=== PATIENT | male | born 1975 | race Two or more races ===

== ENCOUNTER 2018-08-02 06:47 | Inpatient (IN) | payer OTHER ==
[~2018-08-02] VITALS: Ht 167.6 cm; Wt 76.2 kg
[2018-08-02] VITALS (16 sets, daily range): BP systolic 91–149; BP diastolic 50–84
[~2018-08-02 06:47] MED LIST: COUMADIN7.5 MG ORAL; ceFAZolin 1gm IVPB IVPB ONE; celeBREX 200mg Cap **SURGERY PATIENTS ONLY ORAL ONE; oxyCONTIN 20mg tab ORAL ONE
[2018-08-02] MEDS ORDERED: DICLOFENAC SODI75 MG ORAL (07:25)
--- NOTE | 2018-08-02 07:35 | NUR ---
iv was started by jomar tovar r.n. at 0730 am
--- NOTE | 2018-08-02 07:46 | Pre-Procedure Note/Attestation ---
Pre-Procedure Note/Attestation Complete Prior to Procedure Planned Procedure: left Procedure Narrative: CA ligament reconsturction Indications for Procedure Pre-Operative Diagnosis: left AC joint seperation Attestation I attest that I discussed the nature of the procedure; its benefits; risks and complications; and alternatives (and the risks and benefits of such alternatives ), prior to the procedure, with the patient (or the patient's legal freight representative). I attest that, if there was a reasonable possibility of needing a blood transfusion, the patient (or the patient's legal freight representative) was given the [facility] standardized written summary, pursuant to the Perez Deshawn Blood Safety Act ([place] Health and Safety Code # 1645, as amended). I attest that I re-evaluated the patient just prior to the surgery and that there has been no change in the patient's H&P, except as documented below: Keanu Doll MD Aug 02, 2018 07:46
--- NOTE | 2018-08-02 07:46 | Operative Note - PDOC ---
Operative Note Operative Note Pre-op Diagnosis: left AC joint seperation Procedure: seee op report Post-op Diagnosis: same as pre-op plus Operative Findings: consistent w/pre-op dx studies Anesthesia: MAC Specimen: none Complications: none Condition: stable Estimated Blood Loss: none Implant(s) used?: Yes Keanu Doll MD Aug 02, 2018 07:46
--- NOTE | 2018-08-02 08:59 | Anethesia Preoperative Eval ---
Anesthesia Pre-op PMH/ROS General Date of Evaluation: Aug 02, 2018 Anesthesiologist: Jose Miguel ASA Score: ASA 2 Mallampati Score Class I : Soft palate, uvula, fauces, pillars visible Class II: Soft palate, uvula, fauces visible Class III: Soft palate, base of uvula visible Class IV: Only hard plate visible Mallampati Classification: Class II Surgeon: Lavon Diagnosis: Right shoulder pain Surgical Procedure: Right shoulder arthroscopy, AC reconstruction Anesthesia History: none Family History: no anesthesia problems Allergies: Coded Allergies: No Known Allergies (Unverified , 08/01/18) Medications: see eMAR Patient NPO?: Yes NPO Date: Aug 01, 2018 NPO Time: 22:00 Past Medical History Cardiovascular: Reports: HTN, valve dz - s/p aortic valve repair; Denies: CAD, ND, arrhythmia, other Pulmonary: Denies: asthma, COPD, GALEN, other Gastrointestinal/Genitourinary: Denies: GERD, CRI, ESRD, other Neurologic/Psychiatric: Denies: dementia, CVA, depression/anxiety, TIA, other Endocrine: Denies: DM, hypothyroidism, steroids, other HEENT: Denies: cataract (L), cataract (R), glaucoma, SA[place] (L), [place] (R), other Hematology/Immune: Denies: anemia, DVT, bleeding disorder, other Musculoskeletal/Integumentary: Denies: OA, RA, DJD, DDD, edema, other PSxH Narrative: AVR Anesthesia Pre-op Phys. Exam Physician Exam Last Vital Signs Date Time Temp Pulse Resp B/P (MAP) Pulse Ox O2 Delivery O2 Flow Rate FiO2 08/02/18 07:26 Room Air 08/02/18 07:17 96.7 48 18 149/76 99 Constitutional: NAD Cardiovascular: RRR Respiratory: CTA Airway Exam Mallampati Score: Class II MO: full ROM: full Teeth: intact Anesthesia Pre-op A/P Labs see chart Studies Pre-op Studies: EKG - sr Risk Assessment & Plan Assessment: ASA II Plan: GA with interscalene nerve block Status Change Before Surgery: No Pre-Antibiotics Drug: TBD Given Within 1 Hr of Incision: Yes Tona Dye MD Aug 02, 2018 08:59
[2018-08-02] MEDS: Docusate 100mg cap ORAL SCH ×5 (09:00→17:55)
[2018-08-02] MEDS: oxyCONTIN 20mg tab ORAL SCH ×3 (09:00→20:50)
[2018-08-02] MEDS ORDERED: EPINEPHrine 1mg/1ml Amp ONE (09:31)
[2018-08-02] MEDS ORDERED: Bupivacaine 0.25% Inj 30ml INJ ONE (09:31)
[2018-08-02] MEDS ORDERED: Propofol 200mg/20ml IV ONE (09:34)
[2018-08-02] MEDS ORDERED: Lidocaine 1% MPF 10mg/ml 5ml ONE (09:34)
[2018-08-02] MEDS ORDERED: Midazolam 2mg/2ml Inj ONE (09:35)
[2018-08-02] MEDS ORDERED: fentaNYL 100 mcg/2 mL IV ONE (09:35)
[2018-08-02] MEDS ORDERED: Ketorolac 30mg Inj ONE (09:36)
[2018-08-02] MEDS ORDERED: Ropivacaine 5mg/ml Vial 30ml INJ ONE ×2 (09:36→09:38)
[2018-08-02] MEDS ORDERED: Metoclopramide 10mg/2ml Inj ONE (09:36)
[2018-08-02] MEDS ORDERED: LR 1000ml 1,000 ML IVLG SCH (09:50)
[2018-08-02] MEDS ORDERED: Bacitracin 50000 Units Vial IRRIG ONE (09:50)
[2018-08-02] MEDS ORDERED: NS Irrig 2000ml IRRIG ONE (09:50)
[2018-08-02] MEDS ORDERED: Hydromorphone 0.5mg/0.5ml inj IVP PRN (10:00)
[2018-08-02] MEDS ORDERED: Ketorolac 30mg Inj IV PRN (10:00)
[2018-08-02] MEDS ORDERED: fentaNYL 100 mcg/2 mL IV PRN (10:00)
[2018-08-02] MEDS ORDERED: Metoclopramide 10mg/2ml Inj IVP PRN (10:00)
[2018-08-02] MEDS ORDERED: LORazepam Inj 2mg/ml 1ml IV PRN (10:00)
[2018-08-02] MEDS ORDERED: Sterile Water Irrig 1000ml IRRIG ONE (10:00)
[2018-08-02] MEDS ORDERED: NS Irrig 1000ml ONE (10:00)
[2018-08-02] MEDS ORDERED: Midazolam 2mg/2ml Inj IVP PRN (10:00)
[2018-08-02] MEDS ORDERED: DiphenhydrAMINE 50mg/ml Inj IVP PRN (10:00)
[2018-08-02] MEDS ORDERED: LR 1000ml ONE (10:00)
[2018-08-02] MEDS ORDERED: Bacitracin 50000 Units Vial ONE (10:08)
[2018-08-02] MEDS ORDERED: NeoSporin Gu Irrig 1ml Amp IRRIG ONE (10:08)
[2018-08-02] MEDS ORDERED: Dexamethasone 4mg/ml vial ONE (10:37)
--- NOTE | 2018-08-02 12:34 | Immediate Post-Op Evaluation ---
Immediate Post-Op Evalulation Immediate Post-Op Evalulation Procedure: Right AC joint reconstruction Date of Evaluation: Aug 02, 2018 Time of Evaluation: 12:34 IV Fluids: 1.2L Blood Products: 0 Estimated Blood Loss: 20 Urinary Output: 0 Blood Pressure Systolic: 92 Blood Pressure Diastolic: 58 Pulse Rate: 76 Respiratory Rate: 16 O2 Sat by Pulse Oximetry: 95 Temperature (Fahrenheit): 97 Pain Score (1-10): 0 Nausea: No Vomiting: No Complications 0 Patient Status: awake, reacts, patent, none Hydration Status: adequate Drug: Ancef 1g Given Within 1 Hr of Incision: Yes Tona Dye MD Aug 02, 2018 12:33
[2018-08-02] MEDS ORDERED: ceFAZolin sod 1 GM in D5W 55 ML IV SCH (14:00)
--- NOTE | 2018-08-02 14:10 | NUR ---
NURSE NOTES: Received report from JOSEPHINE Paz, PRODUCE LABORER. Patient a/o x4 lying on the bed. Denies any pain at this time. Right shoulder reconstruction surgical site is dry and intact. Left IV site is patent with LR fluid. is at bedside. Bed in lowest position, call light within reach. Will continue to monitor.
[2018-08-02] MEDS: ceFAZolin sod 1 GM in D5W 55 ML IV SCH (17:27)
--- NOTE | 2018-08-02 17:34 | 48 Hour Post Anesthesia Eval ---
Post Anesthesia Evaluation Procedure: Right AC joint reconstruction Date of Evaluation: Aug 02, 2018 Time of Evaluation: 14:03 Blood Pressure Systolic: 117 0: 73 Pulse Rate: 83 Respiratory Rate: 18 Temperature (Fahrenheit): 97.9 O2 Sat by Pulse Oximetry: 95 Airway: patent Nausea: No Vomiting: No Pain Intensity: 1 Hydration Status: adequate Cardiopulmonary Status: Stable Mental Status/LOC: patient returned to baseline Follow-up Care/Observations: 0 Post-Anesthesia Complications: 0 Follow-up care needed: N/A Lane Patten MD Aug 02, 2018 17:34
--- NOTE | 2018-08-02 19:25 | NUR ---
NURSE NOTES: Dr. Khan called and ordered 1. Heparin drip 1,000 units per hour 2. PT/PTT STAT 3. PT/PTT after 6 hours of initiating for heparin drip 4. call Dr. Khan regarding results 5. Coumadin 7.5 mg po one time 6. INR tomorrow morning Noted and carried out.
[2018-08-02] MEDS ORDERED: Heparin 1000 units/ml 1ml Vial INJ ONE (19:30)
[2018-08-02] MEDS ORDERED: Heparin 25,000u/D5W 500ml 500 ML IV SCH (20:15)
--- NOTE | 2018-08-02 20:20 | NUR ---
HAND-OFF: Report given to JONATHAN Tariq.
[2018-08-02 20:37] LABS: HEMATOCRIT 42.8 % (42.0-52.0); HEMOGLOBIN 14.4 G/DL (14.2-18.0); MEAN CORPUSCULAR VOLUME 89 FL (80-99); PLATELET COUNT 194 K/UL (150-450); RED BLOOD COUNT 4.79 M/UL (4.70-6.10); RED CELL DISTRIBUTION WIDTH 11.5 % (11.6-14.8); WHITE BLOOD COUNT 8.3 K/UL (4.8-10.8)
[2018-08-02] MEDS ORDERED: Warfarin Sodium 7.5mg ORAL SCH (21:00)
--- NOTE | 2018-08-02 21:00 | NUR ---
NURSE NOTES: Pt is in bed, awake and alert6. No acute distress noted. Right shoulder dressing is dry and intact; ice pack applied. Heparin drip started per Dr. Khan's order. 13unit/kg/hr ( 19.8ml/hr). A timed PTT is ordered for 0300am. No bleeding noted. Pt's by bedside. Pt will be monitored. Bed low in position,side rails up and call light within reach.
--- NOTE | 2018-08-02 23:00 | NUR ---
NURSE NOTES: Dr. Khan by bedside to see patient. No new orders received.
--- NOTE | 2018-08-02 23:06 | Consultation ---
History of Present Illness General Date patient seen: Aug 02, 2018 Time patient seen: 23:03 Present Illness Allergies: Coded Allergies: No Known Allergies (Unverified , 08/01/18) Medication History Scheduled Diclofenac Sod* (Voltaren*), 75 MG ORAL PRN, (Reported) Warfarin Sod (Coumadin*), 7.5 MG ORAL DAILY, (Reported) Patient History Healthcare decision maker Resuscitation status Advanced Directive on File Review of Systems Constitutional: Reports: no symptoms Eye: Reports: no symptoms ENT: Reports: no symptoms Respiratory: Reports: no symptoms Cardiovascular: Reports: no symptoms Physical Exam General Appearance: WD/WN HEENT: normocephalic, atraumatic Respiratory/Chest: lungs clear Cardiovascular/Chest: normal rate, regular rhythm, other - s1,s 2, Abdomen: non tender, soft Genitourinary/Rectal: other - no edema Last 24 Hour Vital Signs Date Time Temp Pulse Resp B/P (MAP) Pulse Ox O2 Delivery O2 Flow Rate FiO2 08/02/18 21:00 Nasal Cannula 3.0 08/02/18 20:00 98.1 63 16 105/61 (76) 99 08/02/18 17:36 83 18 95 08/02/18 16:10 97.9 83 18 117/73 (88) 95 08/02/18 15:10 97.6 82 16 123/78 (93) 94 08/02/18 14:40 98.4 81 16 129/82 (98) 96 08/02/18 14:10 Nasal Cannula 3.0 08/02/18 14:10 98.1 80 16 133/84 (100) 96 08/02/18 14:00 97.3 76 17 128/81 98 Nasal Cannula 3.0 08/02/18 13:45 97.3 77 16 128/80 97 Nasal Cannula 3.0 08/02/18 13:30 78 15 142/82 98 Nasal Cannula 3 08/02/18 13:20 80 15 126/72 98 Nasal Cannula 3 08/02/18 13:10 81 14 129/82 100 Nasal Cannula 3 08/02/18 13:00 79 16 123/80 100 Simple Mask 6.0 08/02/18 12:49 67 19 125/75 100 Simple Mask 6.0 08/02/18 12:39 71 18 91/57 99 Simple Mask 6.0 08/02/18 12:34 70 17 105/50 99 Simple Mask 6.0 08/02/18 12:33 76 16 95 08/02/18 12:29 97.0 76 16 92/58 95 Simple Mask 6.0 08/02/18 07:26 Room Air 08/02/18 07:17 96.7 48 18 149/76 99 Room Air Laboratory Tests Test 08/02/18 20:15 08/02/18 20:30 Prothrombin Time 10.7 SEC (9.30-11.50) Prothromb Time International Ratio 1.0 (0.9-1.1) Activated Partial Thromboplast Time 23 SEC (23-33) White Blood Count 8.3 K/UL (4.8-10.8) Red Blood Count 4.79 M/UL (4.70-6.10) Hemoglobin 14.4 G/DL (14.2-18.0) Hematocrit 42.8 % (42.0-52.0) Mean Corpuscular Volume 89 FL (80-99) Mean Corpuscular Hemoglobin 30.0 PG (27.0-31.0) Mean Corpuscular Hemoglobin Concent 33.6 G/DL (32.0-36.0) Red Cell Distribution Width 11.5 % (11.6-14.8) L Platelet Count 194 K/UL (150-450) Mean Platelet Volume 6.8 FL (6.5-10.1) Neutrophils (%) (Auto) % (45.0-75.0) Lymphocytes (%) (Auto) % (20.0-45.0) Monocytes (%) (Auto) % (1.0-10.0) Eosinophils (%) (Auto) % (0.0-3.0) Basophils (%) (Auto) % (0.0-2.0) Differential Total Cells Counted 100 Neutrophils % (Manual) 87 % (45-75) H Lymphocytes % (Manual) 8 % (20-45) L Monocytes % (Manual) 3 % (1-10) Eosinophils % (Manual) 0 % (0-3) Basophils % (Manual) 0 % (0-2) Band Neutrophils 2 % (0-8) Platelet Estimate Adequate Platelet Morphology Normal Red Blood Cell Morphology Normal Height (Feet): 5 Height (Inches): 6.00 Weight (Pounds): 168 Medications Current Medications Medications (Trade) Dose Ordered Sig/Kelli Route PRN Reason Start Time Stop Time Status Last Admin Dose Admin Acetaminophen/ Hydrocodone Bitart ([place] 5/325) 1 tab Q4H PRN ORAL For Pain 08/02/18 07:45 08/09/18 07:44 Cefazolin Sodium 1 gm/Dextrose 55 ml @ 110 mls/hr Q8H IV 08/02/18 18:00 08/03/18 10:29 08/02/18 17:27 Docusate Sodium (Colace) 100 mg THREE TIMES A DAY ORAL 08/02/18 09:00 09/01/18 08:59 Heparin Sodium/ Dextrose 500 ml @ 19.813 mls/ hr ADJUST PER PROTOCOL IV 08/02/18 20:15 09/01/18 20:14 08/02/18 20:53 Ondansetron HCl (Zofran) 4 mg Q6H PRN IVP Nausea & Vomiting 08/02/18 07:45 09/01/18 07:44 08/02/18 17:40 Oxycodone HCl (OxyCONTIN) 20 mg EVERY 12 HOURS ORAL 08/02/18 09:00 08/09/18 08:59 08/02/18 20:50 Temazepam (Restoril) 7.5 mg HSPRN PRN ORAL Insomnia 08/02/18 07:45 08/09/18 07:44 Assessment/Plan Status Narrative s/p shoulder surgery history of mechanical aortic valve replacement Assessment/Plan perioperative antibiotic prophyalxis checked pt , ptt, start on coumadin 7.5 mg today check inr in am to get him on heparin dripo and will follow. Miguel Khan MD Aug 02, 2018 23:06
[2018-08-03] VITALS: BP 105/57
[2018-08-03] MEDS: ceFAZolin sod 1 GM in D5W 55 ML IV SCH ×2 (02:37→10:02)
[2018-08-03] MEDS ORDERED: Heparin 5000 units/ml inj IV SCH (03:45)
[2018-08-03] MEDS ORDERED: Heparin 25,000u/D5W 500ml 500 ML IV SCH (03:45)
--- NOTE | 2018-08-03 03:46 | NUR ---
NURSE NOTES: aPTT is 37; [facility] adjusted the heparin drip rate.Orders acknowledged and carried out. Pt is awake and alert. No acute distress noted. No bleeding noted. Pt will be monitored. aPTT ordered for 0645am Addendum: 08/03/18 at 0626 by TADEO BRANHAM RN RN aPTT ordered for 0945am
[2018-08-03 04:00] VITALS: BP 112/55
--- NOTE | 2018-08-03 05:59 | NUR ---
NURSE NOTES: No distress noted overnight. Pt is calm in bed.
--- NOTE | 2018-08-03 07:15 | NUR ---
HAND-OFF: Report given to Shalonda Guzman RN. PT is on heparin drip. Informed to monitor closely.
--- NOTE | 2018-08-03 07:26 | NUR ---
NURSE NOTES: Received report from JONATHAN Tariq. Rounding done with outgoing nurse. Patient a/o x 4 lying on the bed. Surgical site is dry and intact. Patient on heparin drip at this time. No active bleeding noted. IV patent. at bed side. Bed in lowest position, call light within reach. Will continue to monitor.
[2018-08-03] MEDS: Docusate 100mg cap ORAL SCH ×3 (08:33→17:53)
[2018-08-03] MEDS: oxyCONTIN 20mg tab ORAL SCH ×2 (08:34→21:18)
[2018-08-03] MEDS: HYDROcodone/Acetamin 5/325 tab ORAL PRN ×2 (10:04→14:21)
[2018-08-03] MEDS: Heparin 25,000u/D5W 500ml 500 ML IV SCH ×2 (11:16→21:18)
[2018-08-03 12:00] VITALS: BP 126/69
[2018-08-03 16:00] VITALS: BP 126/72
--- NOTE | 2018-08-03 16:15 | NUR ---
NURSE NOTES: Patient still c/o pain after [place] was given. Apical pulse rate [address] Khan and said will come soon.
--- NOTE | 2018-08-03 17:11 | NUR ---
NURSE NOTES: Dr. Khan came to see the patient. Notified to Dr. Khan regarding HR was 50. MD aware and no new order.
--- NOTE | 2018-08-03 17:38 | Consultation ---
History of Present Illness General Date patient seen: Aug 03, 2018 Time patient seen: 17:37 Present Illness Allergies: Coded Allergies: No Known Allergies (Unverified , 08/01/18) Medication History Scheduled Diclofenac Sod* (Voltaren*), 75 MG ORAL PRN, (Reported) Warfarin Sod (Coumadin*), 7.5 MG ORAL DAILY, (Reported) Patient History Healthcare decision maker Resuscitation status Advanced Directive on File Review of Systems Constitutional: Reports: no symptoms Eye: Reports: no symptoms ROS Narrative has a lot of pain norc o is not working Physical Exam General Appearance: WD/WN HEENT: normocephalic Respiratory/Chest: lungs clear Cardiovascular/Chest: other - s1,mechanical s2, rrr Abdomen: non tender, soft Last 24 Hour Vital Signs Date Time Temp Pulse Resp B/P (MAP) Pulse Ox O2 Delivery O2 Flow Rate FiO2 08/03/18 16:00 98.1 50 18 126/72 (90) 92 08/03/18 12:00 97.5 51 19 126/69 (88) 96 08/03/18 09:00 Room Air 08/03/18 04:00 97.5 60 16 112/55 (74) 100 08/03/18 00:00 98.6 59 18 105/57 (73) 98 08/02/18 21:00 Nasal Cannula 3.0 08/02/18 20:00 98.1 63 16 105/61 (76) 99 Intake and Output 08/02/18 08/03/18 19:00 07:00 Intake Total 1405 ml 432.166 ml Balance 1405 ml 432.166 ml Intake Oral 150 ml 240 ml IV Total 1255 ml 192.166 ml # Voids 2 1 Laboratory Tests Test 08/02/18 20:15 08/02/18 20:30 08/03/18 03:01 08/03/18 09:42 Prothrombin Time 10.7 SEC (9.30-11.50) 10.9 SEC (9.30-11.50) Prothromb Time International Ratio 1.0 (0.9-1.1) 1.0 (0.9-1.1) Activated Partial Thromboplast Time 23 SEC (23-33) 37 SEC (23-33) H 106 SEC (23-33) H White Blood Count 8.3 K/UL (4.8-10.8) Red Blood Count 4.79 M/UL (4.70-6.10) Hemoglobin 14.4 G/DL (14.2-18.0) Hematocrit 42.8 % (42.0-52.0) Mean Corpuscular Volume 89 FL (80-99) Mean Corpuscular Hemoglobin 30.0 PG (27.0-31.0) Mean Corpuscular Hemoglobin Concent 33.6 G/DL (32.0-36.0) Red Cell Distribution Width 11.5 % (11.6-14.8) L Platelet Count 194 K/UL (150-450) Mean Platelet Volume 6.8 FL (6.5-10.1) Neutrophils (%) (Auto) % (45.0-75.0) Lymphocytes (%) (Auto) % (20.0-45.0) Monocytes (%) (Auto) % (1.0-10.0) Eosinophils (%) (Auto) % (0.0-3.0) Basophils (%) (Auto) % (0.0-2.0) Differential Total Cells Counted 100 Neutrophils % (Manual) 87 % (45-75) H Lymphocytes % (Manual) 8 % (20-45) L Monocytes % (Manual) 3 % (1-10) Eosinophils % (Manual) 0 % (0-3) Basophils % (Manual) 0 % (0-2) Band Neutrophils 2 % (0-8) Platelet Estimate Adequate Platelet Morphology Normal Red Blood Cell Morphology Normal Test 08/03/18 17:15 Activated Partial Thromboplast Time Pending Height (Feet): 5 Height (Inches): 6.00 Weight (Pounds): 168 Medications Current Medications Medications (Trade) Dose Ordered Sig/Kelli Route PRN Reason Start Time Stop Time Status Last Admin Dose Admin Acetaminophen/ Hydrocodone Bitart ([place] 5/325) 1 tab Q4H PRN ORAL For Pain 08/02/18 07:45 08/09/18 07:44 08/03/18 14:21 Docusate Sodium (Colace) 100 mg THREE TIMES A DAY ORAL 08/02/18 09:00 09/01/18 08:59 08/03/18 12:10 Heparin Sodium/ Dextrose 500 ml @ 21.337 mls/ hr ADJUST PER PROTOCOL IV 08/03/18 11:00 09/02/18 10:59 08/03/18 11:16 Ondansetron HCl (Zofran) 4 mg Q6H PRN IVP Nausea & Vomiting 08/02/18 07:45 09/01/18 07:44 08/02/18 17:40 Oxycodone HCl (OxyCONTIN) 20 mg EVERY 12 HOURS ORAL 08/02/18 09:00 08/09/18 08:59 08/03/18 08:34 Temazepam (Restoril) 7.5 mg HSPRN PRN ORAL Insomnia 08/02/18 07:45 08/09/18 07:44 Warfarin Sodium (Coumadin) 15 mg ONCE ORAL 08/03/18 18:00 08/03/18 20:00 Assessment/Plan Status Narrative s/p shoulder surgery history of mechanical aortic valve replacement inr 1.0 Assessment/Plan perioperative antibiotic prophyalxis checked pt , ptt, start on coumadin 15 mg today check inr in am to get him on heparin dripo and will follow. Miguel Khan MD Aug 03, 2018 17:38
--- NOTE | 2018-08-03 17:41 | NUR ---
NURSE NOTES: Dr. Khan ordered INR every morning at 0700 and percocet 10/325 q4 prn. Noted and carried out.
[2018-08-03] MEDS ORDERED: Warfarin Sodium 7.5mg ORAL SCH (18:00)
--- NOTE | 2018-08-03 19:50 | NUR ---
HAND-OFF: Report given to JONATHAN Hicks. Patient in stable condition.
--- NOTE | 2018-08-03 19:51 | NUR ---
NURSE NOTES: Report taken from JONATHAN Guzman. Patient awake and in bed A&Ox4, at bedside. IV site c/d/i, currently running heparin at 14 units/kg/hr, continue to monitor and follow up with lab for PTT draws. Surgical site c/d/i with no further skin issues. Endorse to next shift, ok for patient to shower POD 3. His HR is low, currently at 51 bpm, MD was made aware, continue to monitor. Bed in lowest position, call light within reach.
[2018-08-03] MEDS ORDERED: NS 500ML ONE (19:57)
[2018-08-03] MEDS ORDERED: NS 275ml ONE (19:57)
[2018-08-03] MEDS ORDERED: Tubing IV Secondary IV ONE ×2 (19:57)
[2018-08-03 20:00] VITALS: BP 132/72
[2018-08-04] VITALS: BP 129/76
[2018-08-04] MEDS ORDERED: Heparin 5000 units/ml inj IV ONE (00:30)
[2018-08-04] MEDS ORDERED: Heparin 25,000u/D5W 500ml 500 ML IV SCH (00:30)
--- NOTE | 2018-08-04 00:55 | NUR ---
NURSE NOTES: PTT taken and results posted. Rate change for Heparin IV to 16 units/kg. Injection of heparin ordered as well. Continue to monitor.
[2018-08-04 04:00] VITALS: BP 132/76
[2018-08-04 07:44] LABS: INR 1.2 (0.9-1.1)
--- NOTE | 2018-08-04 07:45 | NUR ---
NURSE NOTES: Received report from JONATHAN Hicks. Patient on heparin drip at this time. No active bleeding noted. Bed in lowest position, call light within reach. Will continue to monitor.
[2018-08-04 08:00] VITALS: BP 154/84
[2018-08-04] MEDS: Docusate 100mg cap ORAL SCH ×3 (08:48→18:17)
[2018-08-04] MEDS: Heparin 25,000u/D5W 500ml 500 ML IV SCH ×2 (08:51→20:58)
[2018-08-04] MEDS: oxyCONTIN 20mg tab ORAL SCH ×2 (08:52→20:56)
[2018-08-04 12:00] VITALS: BP 144/82
[2018-08-04 16:00] VITALS: BP 140/86
[2018-08-04] MEDS ORDERED: Warfarin Sodium 7.5mg ORAL ONE (18:00)
--- NOTE | 2018-08-04 19:35 | NUR ---
HAND-OFF: Report given to JONATHAN Hicks. Patient in stable condition.
--- NOTE | 2018-08-04 19:36 | NUR ---
NURSE NOTES: Report taken from JONATHAN Guzman. Patient awake and in bed, A&Ox4, at bedside. No signs of distress on room air. Pain level is at 4/10, said that it feels more controlled today. IV site c/d/i and patent, on continuous heparin drip rate @ 14 units/kg/hr. Next PTT 08/05 at 0400. No skin issues, surgical site c/d/i. Encourage patient to continue to increase fluids and use IS. Continue to monitor. Bed in lowest position, call light within reach.
[2018-08-04 20:00] VITALS: BP 142/81
--- NOTE | 2018-08-04 23:36 | Consultation ---
History of Present Illness General Date patient seen: Aug 04, 2018 Time patient seen: 23:34 Present Illness Allergies: Coded Allergies: No Known Allergies (Unverified , 08/01/18) Medication History Scheduled Diclofenac Sod* (Voltaren*), 75 MG ORAL PRN, (Reported) Warfarin Sod (Coumadin*), 7.5 MG ORAL DAILY, (Reported) Patient History Healthcare decision maker Resuscitation status Advanced Directive on File Review of Systems ROS Narrative has beenhaivng a lot of mendez inteh shoulder his inr i ssub therapeutic has ahd coumadin 2 days Physical Exam General Appearance: WD/WN HEENT: normocephalic Respiratory/Chest: lungs clear Cardiovascular/Chest: normal rate - s1. mechanical s2 Abdomen: non tender, soft Last 24 Hour Vital Signs Date Time Temp Pulse Resp B/P (MAP) Pulse Ox O2 Delivery O2 Flow Rate FiO2 08/04/18 21:00 Room Air 08/04/18 20:00 99.1 58 18 142/81 (101) 95 08/04/18 16:00 98.2 60 17 140/86 (104) 94 08/04/18 12:00 99.0 58 18 144/82 (102) 94 08/04/18 09:00 Room Air 08/04/18 08:00 98.8 55 17 154/84 (107) 96 08/04/18 04:00 98.8 55 16 132/76 (94) 95 08/04/18 00:00 98.2 51 16 129/76 (93) 95 Intake and Output 08/03/18 08/04/18 19:00 07:00 Intake Total 108.685 ml 660 ml Output Total 1550 ml Balance 108.685 ml -890 ml Intake Oral 660 ml IV Total 108.685 ml Output Urine Total 1550 ml # Voids 2 Laboratory Tests Test 08/04/18 00:05 08/04/18 06:55 08/04/18 14:45 Activated Partial Thromboplast Time 53 SEC (23-33) H 105 SEC (23-33) H 75 SEC (23-33) H Prothrombin Time 13.0 SEC (9.30-11.50) H Prothromb Time International Ratio 1.2 (0.9-1.1) H Height (Feet): 5 Height (Inches): 6.00 Weight (Pounds): 168 Medications Current Medications Medications (Trade) Dose Ordered Sig/Kelli Route PRN Reason Start Time Stop Time Status Last Admin Dose Admin Docusate Sodium (Colace) 100 mg THREE TIMES A DAY ORAL 08/02/18 09:00 09/01/18 08:59 08/04/18 18:17 Heparin Sodium/ Dextrose 500 ml @ 21.337 mls/ hr ADJUST PER PROTOCOL IV 08/04/18 08:15 09/03/18 08:14 08/04/18 20:58 Ondansetron HCl (Zofran) 4 mg Q6H PRN IVP Nausea & Vomiting 08/02/18 07:45 09/01/18 07:44 08/02/18 17:40 Oxycodone HCl (OxyCONTIN) 20 mg EVERY 12 HOURS ORAL 08/02/18 09:00 08/09/18 08:59 08/04/18 20:56 Oxycodone/ Acetaminophen (Percocet 10/325) 1 tab Q4H PRN ORAL For Pain 08/03/18 17:45 08/10/18 17:44 08/04/18 22:46 Temazepam (Restoril) 7.5 mg HSPRN PRN ORAL Insomnia 08/02/18 07:45 08/09/18 07:44 Assessment/Plan Status Narrative s/p shoulder surgery history of mechanical aortic valve replacement inr 1.2 subtherapeutic Assessment/Plan perioperative antibiotic prophyalxis given o heaprian drip for the bridge therpay checked pt , ptt, started on coumadin 15 mg for 2 days check inr in am give on additional oxycontin 10 mg po x1 Miguel Khan MD Aug 04, 2018 23:36
[2018-08-04] MEDS ORDERED: oxyCONTIN 10mg tab ORAL ONE (23:45)
[2018-08-05 00:06] VITALS: BP 147/85
[2018-08-05 04:00] VITALS: BP 134/72
[2018-08-05 05:10] LABS: INR 2.5 (0.9-1.1)
--- NOTE | 2018-08-05 05:30 | NUR ---
NURSE NOTES: manny Boyd from [facility] called. Results of PTT - 65. Endorsed to keep current rate 14 units/kg/hour. Asked for order for new PTT 3/12 AM. Addendum: 08/05/18 at 0722 by Carlos Gutierrez RN Per protocol keep same rate 21.33mls/hr
--- NOTE | 2018-08-05 07:22 | NUR ---
HAND-OFF: Report given to JONATHAN Diego. Patient asleep, stable, current heparin still running.
--- NOTE | 2018-08-05 07:22 | NUR ---
NURSE NOTES:WALKING ROUNDS DONE WITH NIGHT RNJUANIS),PATIENT ASLEEP,ROOM AIR,NO SIGN OF PAIN.ON HEPARIN DRIP,IV SITE PATENT.WILL MONITOR.
[2018-08-05 08:00] VITALS: BP 128/69
--- NOTE | 2018-08-05 08:32 | Operative Note - Dictated ---
DATE OF OPERATION: 08/02/2018 PREOPERATIVE DIAGNOSIS: Right AC joint separation, grade 5. POSTOPERATIVE DIAGNOSIS: Right AC joint separation, grade 5. PROCEDURES: 1. Right shoulder open coracoclavicular ligament reconstruction with tibialis anterior allograft. 2. Open distal clavicle resection. SURGEON: Keanu Doll M.D. ANESTHESIA: Interscalene with general. INDICATION FOR PROCEDURE: The patient is a pleasant gentleman who sustained an injury to the right shoulder. He is diagnosed with the AC joint separation pain, indicative of operative fixation. Risks, limitations, expectations, and complications of the procedure were discussed in detail. All questions were addressed. DESCRIPTION OF PROCEDURE: After informed consent was obtained, the patient was brought to the operating room and placed under interscalene general anesthesia. Right shoulder was prepped and draped in a sterile manner. Time-out was performed. The posterior aspect of the clavicle to the coracoid was identified. Incision was then made. Blunt dissection was performed. Once subcutaneous flaps were created, the trapezial deltoid fascia was incised along the clavicle exposing the distal clavicle. A 10 mm off the distal clavicle was measured, and an open AC joint resection was performed. Once that was done, attention was turned towards identifying the coracoid process. Once this was identified, a luggage stitch was then placed along the coracoid process. The tibialis anterior allograft, which was prepared on the back table, was then also passed underneath the coracoid. Once that was done, a placement where the coronoid ligament attached approximately 35 mm from resection was made. A Dog Bone suture implant was then placed and the AC joint was reduced. The Dog Bone was secured. Once that was completed, the tibialis anterior allograft was then fashioned from the posterior knee anterior to the distal clavicle, and it was tied upon itself as well as with #2 FiberWire. Once that was done, the wound was copiously irrigated. The deltoid was then fastened using a pants over vest technique with interrupted sutures. The skin was closed using 3-0 Vicryl and 3-0 Monocryl sutures. Compression dressing was applied. The patient was awoken and taken to the recovery room with stable vital signs. ESTIMATED BLOOD LOSS: 50 mL. COMPLICATIONS: None. SPECIMENS: None. IMPLANTS: Include Arthrex Dog Bone implant, two FiberTape suture anchors, and tibialis anterior allograft. Keanu Doll M.D. DR: MING JOB#: [id number] CC: LUIS M
[2018-08-05] MEDS: Docusate 100mg cap ORAL SCH ×3 (08:36→18:00)
[2018-08-05] MEDS: oxyCONTIN 20mg tab ORAL SCH ×2 (08:36→21:02)
--- NOTE | 2018-08-05 08:45 | NUR ---
NURSE NOTES: CALLED AND MADE AWARE RE:INR:2.5
[2018-08-05 10:16] LABS: BASOPHILS % (AUTO) 1.2 % (0.0-2.0); EOSINOPHILS % (AUTO) 4.4 % (0.0-3.0); HEMATOCRIT 43.8 % (42.0-52.0); HEMOGLOBIN 14.8 G/DL (14.2-18.0); LYMPHOCYTES % (AUTO) 24.1 % (20.0-45.0); MEAN CORPUSCULAR VOLUME 90 FL (80-99); MONOCYTES % (AUTO) 9.7 % (1.0-10.0); NEUTROPHILS % (AUTO) 60.6 % (45.0-75.0); PLATELET COUNT 196 K/UL (150-450); RED BLOOD COUNT 4.86 M/UL (4.70-6.10); RED CELL DISTRIBUTION WIDTH 11.1 % (11.6-14.8); WHITE BLOOD COUNT 8.8 K/UL (4.8-10.8)
[2018-08-05 12:00] VITALS: BP 138/83
[2018-08-05 13:00] VITALS: BP 148/61
--- NOTE | 2018-08-05 14:32 | NUR ---
CASE MANAGEMENT:REVIEW 08/02/18 SI: RT AC JOINT SEPARATION, GRADE 5 97.0 76 16 92/58 99% ON RA IS: TO SURGERY: RT SHOULDER RECONSTRUCTION : TO MED/SURG POST OP INTERQUAL CRITERIA MET 08/05/18 SI: POD #3 S/P RT SHOULDER RECONSTRUCTION 97.7 64 17 148/61 97% ON RA PT+25.2 INR+2.5 APTT+65 IS: HEPARIN GTT 14U/KG PERCOCET PO Q4HRS PRN OXYCONTIN PO Q12 : MED/SURG STATUS 3 EAST
[2018-08-05 16:00] VITALS: BP 140/91
--- NOTE | 2018-08-05 18:27 | Discharge Summary ---
Discharge Summary Hospital Course Date of Admission Aug 02, 2018 at 07:44 Date of Discharge date of disharge 08/05/2018 he was admited to ve surgery PROCEDURES: 1. Right shoulder open coracoclavicular ligament reconstruction with tibialis anterior allograft. 2. Open distal clavicle resection. he udner went surgery without difficulty has history of echanical aortic valve replaement ?compliance with coumadin prior to admit none the less has had inr 1.0 , 11.2 and 2.5 will get coumadin4 mg today and go home. to go back onhis regimen at home pain control rios pantojan he is to kanu serrano his PMD for INR check. Admitting Diagnosis HPI Leonel Dutta is a 43 year old male who was admitted on Aug 02, 2018 at 07:44 for Right Shoulder Pain Hospital Course perioperative antibiotic prophyalxis given o heaprian drip for the bridge therpay checked pt , ptt, started on coumadin 15 mg for 2 days check inr in am give on additional oxycontin 10 mg po x1 Discharge Condition Upon Discharge: stable Discharge Disposition Patient was discharged to home Miguel Khan MD Aug 05, 2018 18:27
[2018-08-05] MEDS ORDERED: Warfarin Sodium 4mg ORAL SCH (18:30)
--- NOTE | 2018-08-05 18:30 | NUR ---
NURSE NOTES:SEEN BY ,HEPARIN DRIP D/CD.COUMADIN 4MG GIVEN,FOR DISCHARGE TODAY.
--- NOTE | 2018-08-05 19:25 | NUR ---
HAND-OFF: Report given to NARDA SHIELDS.
--- NOTE | 2018-08-05 21:05 | NUR ---
NURSE NOTES: Patient was D/C at 2100. Is going home in personal vehicle with to home. Given pain medication before departure. Patients signed paperwork as he could not. Belongins sent home with self, list reviewed and signed by . Script sent with packet. RN walked with patient to vehicle.
== END 2018-08-05 21:10 | disposition home or self-care (01) | DRG 508 ==
LOC: SUR 06:47 → 3E 07:44
PROC: 0RQG0ZZ Repair Right Acromioclavicular Joint, Open Approach (ICD-10-PCS; principal; 2018-08-02 10:30)
PROC: 0PB90ZZ Excision of Right Clavicle, Open Approach (ICD-10-PCS; principal; 2018-08-02 10:30)
DX: S43.101A Unspecified dislocation of right acromioclavicular joint, initial encounter (principal); X58.XXXA Exposure to other specified factors, initial encounter; Z79.01 Long term (current) use of anticoagulants; Z95.2 Presence of prosthetic heart valve
CPT/HCPCS: 36415; 85007; 85025; 85610; 85730; 94003; 94150; J2250; J2405; J2765

== ENCOUNTER 2018-09-03 13:34 | Inpatient (IN) | payer OTHER ==
[2018-09-03] VITALS (9 sets, daily range): BP systolic 111–154; BP diastolic 17–81
[~2018-09-03] VITALS: Ht 167.6 cm; Wt 69.6 kg
[~2018-09-03 13:34] MED LIST changes: +DICLOFENAC SODI75 MG ORAL; -ceFAZolin 1gm IVPB IVPB ONE; -celeBREX 200mg Cap **SURGERY PATIENTS ONLY ORAL ONE; -oxyCONTIN 20mg tab ORAL ONE
--- NOTE | 2018-09-03 15:20 | NUR ---
NURSE NOTES: Pt arrived to floor accompanied by . Pt is a male Ivorian speaker alert and orientated x 4. Able to verbalize needs . Pt breathing room air with signs of distress. Oral mucosa moist , has lower dentures. lung romano clear. Presence of S1and S2. abdominal sounds present and active. No tenderness upon palpation. 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 Pedal pulses palpable. Rt shoulder is red bandage is in place. Pt describes pain to area as tightness. Currently wearing a sling to rt shoulder. NPO . Pt is ambulatory
[2018-09-03 16:48] LABS: BASOPHILS % (AUTO) 1.6 % (0.0-2.0); EOSINOPHILS % (AUTO) 6.3 % (0.0-3.0); HEMATOCRIT 37.8 % (42.0-52.0); HEMOGLOBIN 12.9 G/DL (14.2-18.0); LYMPHOCYTES % (AUTO) 33.4 % (20.0-45.0); MEAN CORPUSCULAR VOLUME 86 FL (80-99); MONOCYTES % (AUTO) 7.3 % (1.0-10.0); NEUTROPHILS % (AUTO) 51.4 % (45.0-75.0); PLATELET COUNT 211 K/UL (150-450); RED BLOOD COUNT 4.37 M/UL (4.70-6.10); RED CELL DISTRIBUTION WIDTH 10.9 % (11.6-14.8); WHITE BLOOD COUNT 5.8 K/UL (4.8-10.8)
[2018-09-03 16:53] LABS: INR 1.3 (0.9-1.1)
--- NOTE | 2018-09-03 17:07 | NUR ---
NURSE NOTES: IV placed to left hand [address] Doll phoned due to pt verbalizations of use of Coumadin . Pt did not bring medication bottle is unaware of how much he takes. phoned and made aware. Commodities Requirements Analyst provided pt with [employer] phone for communication purposes. Awaiting for return phone call . . Will update notes as needed
[2018-09-03 17:08] LABS: ANION GAP 10 mmol/L (5-15); BLOOD UREA NITROGEN 9 mg/dL (7-18); CALCIUM 8.7 MG/DL (8.5-10.1); CARBON DIOXIDE 26 MMOL/L (21-32); CHLORIDE 105 MMOL/L (98-107); CREATININE 0.8 MG/DL (0.55-1.30); POTASSIUM 3.6 MMOL/L (3.5-5.1); SODIUM 141 MMOL/L (136-145)
[2018-09-03 17:36] LABS: ALBUMIN 3.7 G/DL (3.4-5.0)
[2018-09-03 18:03] LABS: ALANINE AMINOTRANSFERASE 95 U/L (12-78); ALKALINE PHOSPHATASE 154 U/L (46-116); ASPARTATE AMINO TRANSFERASE 55 U/L (15-37)
[2018-09-03 18:13] LABS: BILIRUBIN,TOTAL 1.1 MG/DL (0.2-1.0)
[2018-09-03 18:14] LABS: BILIRUBIN,DIRECT 0.2 MG/DL (0.0-0.3)
[2018-09-03] MEDS ORDERED: DOXYCYCLINE MO100 MG ORAL (18:22)
[2018-09-03] MEDS ORDERED: NORCO 10-325 T1 EACH ORAL (18:23)
--- NOTE | 2018-09-03 18:50 | NUR ---
NURSE NOTES: Dr Doll phoned requested INR results results provided, stated that surgery will go on. also made aware that pt complaining of some pain earlier in shift. Did not give further orders. Pt remains alert and orientated. In stable condition. No further orders given . IV pole and pump at bedside for possible post-op orders
--- NOTE | 2018-09-03 19:23 | NUR ---
NURSE NOTES: Dr Khan here seen pt
--- NOTE | 2018-09-03 19:37 | History and Physical ---
History of Present Illness General Date patient seen: Sep 03, 2018 Time patient seen: 19:33 Reason for Hospitalization: shoulder swelling Present Illness Allergies: Coded Allergies: No Known Allergies (Unverified , 08/01/18) Medication History Scheduled Doxycycline Monohydrate* (Doxycycline Monohydrate*), 100 MG ORAL DAILY, ( Reported) Warfarin Sod (Coumadin*), 7.5 MG ORAL DAILY, (Reported) Scheduled PRN Hydrocodone Bit/Acetaminophen 10-325* ([place] 10-325*), 1 TAB ORAL Q4H PRN for For Pain, (Reported) Patient History Healthcare decision maker N Resuscitation status Full Code Advanced Directive on File No Review of Systems ROS Narrative pateint is admmited to [facility] swelling has had recent sarthroscopic shoudler surgery heis a 43 year old male with arotic valve replacment 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 he is getting addmited to be eval for possible septic shoulder. Physical Exam General Appearance: WD/WN HEENT: normocephalic Neck: other - no jvd Respiratory/Chest: lungs clear Cardiovascular/Chest: other - s1,s2 =mechanical regular Extremities: other Last 24 Hour Vital Signs Date Time Temp Pulse Resp B/P (MAP) Pulse Ox O2 Delivery O2 Flow Rate FiO2 09/03/18 16:00 97.9 82 19 112/69 (83) 98 09/03/18 14:33 Room Air 09/03/18 14:31 Room Air Laboratory Tests Test 09/03/18 16:20 White Blood Count 5.8 K/UL (4.8-10.8) Red Blood Count 4.37 M/UL (4.70-6.10) L Hemoglobin 12.9 G/DL (14.2-18.0) L Hematocrit 37.8 % (42.0-52.0) L Mean Corpuscular Volume 86 FL (80-99) Mean Corpuscular Hemoglobin 29.5 PG (27.0-31.0) Mean Corpuscular Hemoglobin Concent 34.1 G/DL (32.0-36.0) Red Cell Distribution Width 10.9 % (11.6-14.8) L Platelet Count 211 K/UL (150-450) Mean Platelet Volume 6.5 FL (6.5-10.1) Neutrophils (%) (Auto) 51.4 % (45.0-75.0) Lymphocytes (%) (Auto) 33.4 % (20.0-45.0) Monocytes (%) (Auto) 7.3 % (1.0-10.0) Eosinophils (%) (Auto) 6.3 % (0.0-3.0) H Basophils (%) (Auto) 1.6 % (0.0-2.0) Prothrombin Time 13.8 SEC (9.30-11.50) H Prothromb Time International Ratio 1.3 (0.9-1.1) H Activated Partial Thromboplast Time 32 SEC (23-33) Sodium Level 141 MMOL/L (136-145) Potassium Level 3.6 MMOL/L (3.5-5.1) Chloride Level 105 MMOL/L (98-107) Carbon Dioxide Level 26 MMOL/L (21-32) Anion Gap 10 mmol/L (5-15) Blood Urea Nitrogen 9 mg/dL (7-18) Creatinine 0.8 MG/DL (0.55-1.30) Estimat Glomerular Filtration Rate > 60 mL/min (>60) Glucose Level 95 MG/DL (74-106) Calcium Level 8.7 MG/DL (8.5-10.1) Total Bilirubin 1.1 MG/DL (0.2-1.0) H Direct Bilirubin 0.2 MG/DL (0.0-0.3) Aspartate Amino Transf (AST/SGOT) 55 U/L (15-37) H Alanine Aminotransferase (ALT/SGPT) 95 U/L (12-78) H Alkaline Phosphatase 154 U/L (46-116) H Total Protein 7.4 G/DL (6.4-8.2) Albumin 3.7 G/DL (3.4-5.0) Globulin 3.7 g/dL Height (Feet): 5 Height (Inches): 6.00 Weight (Pounds): 154 Assessment/Plan Status Narrative INR IS 1.3 PTT 32 WBC 5.8 HCT 37.8 PLATELET 2111 CHECK ESR AND CRP Assessment/Plan CHECK EKG PROCEED WITH SURGERY FO RI AND D KNEE Miguel Danielle MD Sep 03, 2018 19:37
--- NOTE | 2018-09-03 19:48 | Pre-Procedure Note/Attestation ---
Pre-Procedure Note/Attestation Complete Prior to Procedure Planned Procedure: right Procedure Narrative: shoulder I&D Indications for Procedure Pre-Operative Diagnosis: right shoulder infection Attestation I attest that I discussed the nature of the procedure; its benefits; risks and complications; and alternatives (and the risks and benefits of such alternatives ), prior to the procedure, with the patient (or the patient's legal territory representative). I attest that, if there was a reasonable possibility of needing a blood transfusion, the patient (or the patient's legal territory representative) was given the [facility] standardized written summary, pursuant to the [place] Blood Safety Act ([place] Health and Safety Code # 1645, as amended). I attest that I re-evaluated the patient just prior to the surgery and that there has been no change in the patient's H&P, except as documented below: Keanu Doll MD Sep 03, 2018 19:48
--- NOTE | 2018-09-03 19:49 | Operative Note - PDOC ---
Operative Note Operative Note Pre-op Diagnosis: right shoulder infection Procedure: see op report Post-op Diagnosis: same as pre-op plus Anesthesia: MAC Specimen: none Complications: none Condition: stable Estimated Blood Loss: none Implant(s) used?: No Keanu Doll MD Sep 03, 2018 19:49
[2018-09-03] MEDS ORDERED: Bacitracin 50000 Units Vial ONE (19:55)
[2018-09-03] MEDS ORDERED: Bupivacaine 0.25% Inj 30ml INJ ONE (19:55)
[2018-09-03] MEDS ORDERED: NeoSporin Gu Irrig 1ml Amp IRRIG ONE (19:55)
[2018-09-03] MEDS ORDERED: Bupivacaine w/Epi 0.5% 30ml Vial INJ ONE (19:55)
[2018-09-03] MEDS ORDERED: Ropivacaine 5mg/ml Vial 30ml INJ ONE (19:55)
[2018-09-03] MEDS ORDERED: Sterile Water Irrig 1000ml IRRIG ONE (20:00)
[2018-09-03] MEDS ORDERED: NS Irrig 1000ml ONE (20:00)
[2018-09-03] MEDS ORDERED: LR 1000ml ONE (20:00)
--- NOTE | 2018-09-03 20:00 | NUR ---
Received report from JONATHAN Howard. Patient left unit to surgery at approximately 2004.
[2018-09-03] MEDS ORDERED: Midazolam 2mg/2ml Inj ONE (20:08)
[2018-09-03] MEDS ORDERED: Lidocaine 1% MPF 10mg/ml 5ml ONE (20:08)
[2018-09-03] MEDS ORDERED: Propofol 200mg/20ml IV ONE (20:08)
[2018-09-03] MEDS ORDERED: fentaNYL 100 mcg/2 mL IV ONE (20:08)
[2018-09-03] MEDS ORDERED: Hydromorphone 0.5mg/0.5ml inj SUBQ PRN (20:09)
[2018-09-03] MEDS ORDERED: Vancomycin 1gm vial IVPB ONE ×2 (20:13→20:20)
--- NOTE | 2018-09-03 20:15 | NUR ---
NURSE NOTES: Report given to Angelique OR nurse . Made aware that proposal writer is outgoing nurse, Pt recently voided 30 minutes ago. He is ambulatory. Has been NPO Does not have any jewelery on . Belonging are log in . IV site is patent. To left hand 22 gauge. Angelique made aware that Dr Khan recently left floor, and added HP to pt chart. Labs provide to Dr Khan. Charge Nurse aware of pending procedure. remained at bedside. Shin translating phone at bedside. provided with cot will be staying with pt
--- NOTE | 2018-09-03 20:21 | NUR ---
HAND-OFF: Report given to Siria.
[2018-09-03] MEDS ORDERED: NS Irrig 4000ml IRRIG ONE (20:55)
[2018-09-03] MEDS ORDERED: Ketorolac 30mg Inj ONE (20:56)
[2018-09-03] MEDS: oxyCONTIN 20mg tab ORAL SCH (21:00)
[2018-09-03] MEDS: D5 1/2NS 1,000 ML IV SCH (21:00)
[2018-09-03] MEDS ORDERED: LR 1000ml 1,000 ML IVLG SCH (21:04)
--- NOTE | 2018-09-03 21:04 | Anethesia Preoperative Eval ---
Anesthesia Pre-op PMH/ROS General Date of Evaluation: Sep 03, 2018 Time of Evaluation: 20:10 Anesthesiologist: Christopher ASA Score: ASA 2 Mallampati Score Class I : Soft palate, uvula, fauces, pillars visible Class II: Soft palate, uvula, fauces visible Class III: Soft palate, base of uvula visible Class IV: Only hard plate visible Mallampati Classification: Class II Surgeon: Lavon Diagnosis: Infected R shoulder wound Surgical Procedure: I&D of infected shoulder Anesthesia History: none Family History: no anesthesia problems Allergies: Coded Allergies: No Known Allergies (Unverified , 08/01/18) Medications: see eMAR Patient NPO?: Yes NPO Date: Sep 03, 2018 NPO Time: 1430 Past Medical History Cardiovascular: Reports: valve dz - s/p aortic valve replacement; Denies: HTN, CAD, [place], arrhythmia, other Pulmonary: Denies: asthma, COPD, GALEN, other Gastrointestinal/Genitourinary: Reports: GERD - mild; Denies: CRI, ESRD, other Neurologic/Psychiatric: Denies: dementia, CVA, depression/anxiety, TIA, other Endocrine: Denies: DM, hypothyroidism, steroids, other HEENT: Denies: cataract (L), cataract (R), glaucoma, [place] (L), CH[place]KY[place]K (R), other Hematology/Immune: Denies: anemia, DVT, bleeding disorder, other Musculoskeletal/Integumentary: Denies: OA, RA, DJD, DDD, edema, other PMH Narrative: s/p R shoulder ligament repair infected wound for 2 weeks, some discharge lately PSxH Narrative: see H&P Anesthesia Pre-op Phys. Exam Physician Exam Last Vital Signs Date Time Temp Pulse Resp B/P (MAP) Pulse Ox O2 Delivery O2 Flow Rate FiO2 09/03/18 16:00 97.9 82 19 112/69 (83) 98 09/03/18 14:33 Room Air Constitutional: NAD Neurologic: CN 2-12 intact Cardiovascular: RRR, no M/R/G Respiratory: CTA Gastrointestinal: S/NT/ND Airway Exam Mallampati Score: Class II MO: full Neck: flexible ROM: limited Teeth: intact Dentures: no upper, no lower Anesthesia Pre-op A/P Labs Hematology Test 09/03/18 16:20 White Blood Count 5.8 K/UL (4.8-10.8) Red Blood Count 4.37 M/UL (4.70-6.10) L Hemoglobin 12.9 G/DL (14.2-18.0) L Hematocrit 37.8 % (42.0-52.0) L Mean Corpuscular Volume 86 FL (80-99) Mean Corpuscular Hemoglobin 29.5 PG (27.0-31.0) Mean Corpuscular Hemoglobin Concent 34.1 G/DL (32.0-36.0) Red Cell Distribution Width 10.9 % (11.6-14.8) L Platelet Count 211 K/UL (150-450) Mean Platelet Volume 6.5 FL (6.5-10.1) Neutrophils (%) (Auto) 51.4 % (45.0-75.0) Lymphocytes (%) (Auto) 33.4 % (20.0-45.0) Monocytes (%) (Auto) 7.3 % (1.0-10.0) Eosinophils (%) (Auto) 6.3 % (0.0-3.0) H Basophils (%) (Auto) 1.6 % (0.0-2.0) Erythrocyte Sedimentation Rate 33 MM/HR (0-15) H Coagulation Test 09/03/18 16:20 Prothrombin Time 13.8 SEC (9.30-11.50) H Prothromb Time International Ratio 1.3 (0.9-1.1) H Activated Partial Thromboplast Time 32 SEC (23-33) Chemistry Test 09/03/18 16:20 Sodium Level 141 MMOL/L (136-145) Potassium Level 3.6 MMOL/L (3.5-5.1) Chloride Level 105 MMOL/L (98-107) Carbon Dioxide Level 26 MMOL/L (21-32) Anion Gap 10 mmol/L (5-15) Blood Urea Nitrogen 9 mg/dL (7-18) Creatinine 0.8 MG/DL (0.55-1.30) Estimat Glomerular Filtration Rate > 60 mL/min (>60) Glucose Level 95 MG/DL (74-106) Calcium Level 8.7 MG/DL (8.5-10.1) Total Bilirubin 1.1 MG/DL (0.2-1.0) H Direct Bilirubin 0.2 MG/DL (0.0-0.3) Aspartate Amino Transf (AST/SGOT) 55 U/L (15-37) H Alanine Aminotransferase (ALT/SGPT) 95 U/L (12-78) H Alkaline Phosphatase 154 U/L (46-116) H C-Reactive Protein, Quantitative 1.2 mg/dL (0.00-0.90) H Total Protein 7.4 G/DL (6.4-8.2) Albumin 3.7 G/DL (3.4-5.0) Globulin 3.7 g/dL Studies Pre-op Studies: EKG - NSR Risk Assessment & Plan Assessment: ASA 2 Plan: GA with LMA Status Change Before Surgery: No Pre-Antibiotics Drug: Vanco 1gr Given Within 1 Hr of Incision: Yes Time Given: 20:42 Osvaldo White MD Sep 03, 2018 21:04
[2018-09-03] MEDS ORDERED: Meperidine 50mg/ml Inj(FOR RIGORS ONLY) IV PRN (21:15)
[2018-09-03] MEDS ORDERED: DiphenhydrAMINE 50mg/ml Inj IVP PRN (21:15)
[2018-09-03] MEDS ORDERED: Hydromorphone 0.5mg/0.5ml inj IVP PRN (21:15)
[2018-09-03] MEDS: Vancomycin 1.25gm Premix IVPB SCH (21:30)
--- NOTE | 2018-09-03 21:40 | Immediate Post-Op Evaluation ---
Immediate Post-Op Evalulation Immediate Post-Op Evalulation Procedure: I&D of R shoulder infected wound Date of Evaluation: Sep 03, 2018 Time of Evaluation: 21:39 IV Fluids: 600 Blood Products: none Estimated Blood Loss: 50 Urinary Output: none Blood Pressure Systolic: 122 Blood Pressure Diastolic: 75 Pulse Rate: 64 Respiratory Rate: 20 O2 Sat by Pulse Oximetry: 99 Temperature (Fahrenheit): 97.6 Pain Score (1-10): 1 Nausea: No Vomiting: No Complications none Patient Status: reacts, patent, none Hydration Status: adequate Osvaldo White MD Sep 03, 2018 21:40
--- NOTE | 2018-09-03 22:30 | NUR ---
Received report from Nohemi, REROLLING MACHINE OPERATOR. IV intact, patent. LR running at this time, patient alert and oriented x4. , Elenita at bedside. Patient stated will give phone to to keep. Encouraged to call as needed. Given water and juice, tolerating well. Will continue to monitor. Addendum: 09/04/18 at 0925 by Angela Santiago RN Noted heart rate 55 bpm. Patient on O2 NC, no dizziness, no N/V, no pain.
[2018-09-04] VITALS: BP 117/74
[2018-09-04 04:00] VITALS: BP 113/70
--- NOTE | 2018-09-04 04:00 | Operative Note - Dictated ---
DATE OF OPERATION: 09/03/2018 PREOPERATIVE DIAGNOSIS: Right shoulder infection, status post acromioclavicular joint stabilization. POSTOPERATIVE DIAGNOSIS: Right shoulder infection, status post acromioclavicular joint stabilization. PROCEDURES: 1. Right shoulder I and D, deep. 2. Repair of deltoid fascia dehiscence. 3. Complex wound closure. SURGEON: Keanu Doll M.D. ANESTHESIA: MAC. INDICATION FOR PROCEDURE: The patient is a pleasant gentleman, who underwent AC joint stabilization procedure. Approximately a week after the procedure, he developed some mild serous drainage. He was started on some oral antibiotics. He continued to have persistent drainage and therefore it was felt that he probably had intermittent infection for possible P. acne infection, although we started on doxycycline although the wound appeared to be healing well, he continued to have the serous drainage, therefore it was felt that exploration and I and D of the right shoulder would be reasonable. Risks, limitations, expectations, and complications related to procedure were discussed in detail given his medical comorbidities. DESCRIPTION OF PROCEDURE: After informed consent was obtained, the patient was brought to the operating room. The patient was placed under general anesthesia. Right shoulder was prepped and draped in a sterile manner. Brachial muscle was felt until we got intraoperative cultures from wounds. Previous skin incision was incised. Medial subcutaneous flaps were created. At this point, multiple cultures were taken. It was sent off for aerobic, anaerobic, and fungal as well as P. acne. At this point, it looked like the suture fixation of the distal clavicle was still in place. The allograft to go was wrapped around the distal clavicle, however, seemed like the deltoid fascial sleeve had dehisced. Some of the graft, which was placed along the acromion seemed to be disrupted. At this point, any necrotic tissue was debrided down to healthy tissue. At this point, the irrigation with bacitracin was used to irrigate the shoulder. Once this was done, vancomycin powder was packed deep into the recess. At this point, the distal end of the graft along the distal part of clavicle was imbricated along the acromion to further stabilize and reconstruct the AC or CA ligament. Once the graft was used to completely cover the distal end of the clavicle, the deltoid fascial sling was mobilized carefully. A [id number] using interrupted sutures were then used to further cinch down the deltoid fascia. Once this was done, the skin was approximated using 2-0 Vicryl sutures. The skin was closed using a mattress nylon sutures to stay complete tension off the skin. Once that was done, compression dressing was applied. The patient was awoken and taken to recovery room with stable vital signs. ESTIMATED BLOOD LOSS: None. COMPLICATIONS: None. SPECIMENS: Include aerobic and anaerobic cultures as well as fungal cultures as well as cultures for P. acne. PROCEDURE: Blood cultures, two sets of blood cultures were obtained by the prepping of the right shoulder. Keanu Doll M.D. DR: MCKENZIE JOB#: [id number] CC:
--- NOTE | 2018-09-04 07:30 | NUR ---
HAND-OFF: Report given to JONATHAN Ozuna. Patient denies pain, no distress noted, at bedside.
[2018-09-04 08:00] VITALS: BP 113/70
--- NOTE | 2018-09-04 08:00 | NUR ---
NURSE NOTES: Received report from Angela CASTILLO, pt a/a/o x4 laying in bed with no signs of distress or other issues at this time. surgical dressing dry and intact. Iv on the left hand gauge#22 running D5 1/2 NS@75ml/hr. 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 pt tolerating well with no n/v. pt voiding well. at bedside. I will f/u as needed.
[2018-09-04] MEDS ORDERED: Enoxaparin 30mg Inj SUBQ SCH (09:00)
[2018-09-04] MEDS: Vancomycin 1.25gm Premix IVPB SCH ×2 (09:16→21:32)
[2018-09-04] MEDS: oxyCONTIN 20mg tab ORAL SCH ×2 (09:16→21:33)
[2018-09-04] MEDS: Docusate 100mg cap ORAL SCH ×3 (09:16→17:51)
[2018-09-04] MEDS: D5 1/2NS 1,000 ML IV SCH ×2 (09:17→21:33)
[2018-09-04 12:00] VITALS: BP 106/71
[2018-09-04] MEDS ORDERED: Heparin 25,000u/D5W 500ml 500 ML IV SCH ×2 (12:00→21:00)
--- NOTE | 2018-09-04 12:00 | NUR ---
NURSE NOTES: Spoke with Dr. Doll regarding Dr. Khan orders for heparin, he stated that he will talk to him to clarify orders and will call us back.
[2018-09-04 12:23] LABS: BASOPHILS % (AUTO) 1.6 % (0.0-2.0); EOSINOPHILS % (AUTO) 7.2 % (0.0-3.0); HEMATOCRIT 38.1 % (42.0-52.0); HEMOGLOBIN 12.9 G/DL (14.2-18.0); MEAN CORPUSCULAR VOLUME 88 FL (80-99); MONOCYTES % (AUTO) 6.5 % (1.0-10.0); NEUTROPHILS % (AUTO) 51.8 % (45.0-75.0); PLATELET COUNT 213 K/UL (150-450); RED BLOOD COUNT 4.31 M/UL (4.70-6.10); RED CELL DISTRIBUTION WIDTH 11.2 % (11.6-14.8); WHITE BLOOD COUNT 4.9 K/UL (4.8-10.8)
--- NOTE | 2018-09-04 12:31 | 48 Hour Post Anesthesia Eval ---
Post Anesthesia Evaluation Procedure: I&D of R shoulder infected wound Date of Evaluation: Sep 04, 2018 Time of Evaluation: 12:30 Blood Pressure Systolic: 116 0: 72 Pulse Rate: 76 Respiratory Rate: 20 Temperature (Fahrenheit): 97.5 O2 Sat by Pulse Oximetry: 98 Airway: patent Nausea: No Vomiting: No Pain Intensity: 2 Hydration Status: adequate Cardiopulmonary Status: stable Mental Status/LOC: patient returned to baseline Follow-up Care/Observations: n/a Post-Anesthesia Complications: none Follow-up care needed: N/A Osvaldo White MD Sep 04, 2018 12:31
--- NOTE | 2018-09-04 14:19 | Infectious Diseases Prog Note ---
Assessment/Plan Assessment/Plan Full consult dictated: A) 1) right shoulder infection, wound infection/serous drainage - s/p I/D 2) previous culture with P. acne, tx with doxycycline as outpatient 3) allergies - nkda P) 1) vancomycin and cefepime 2) f/u on cultures 3) monitor labs 4) thank you Subjective Allergies: Coded Allergies: No Known Allergies (Unverified , 08/01/18) Objective Vital Signs Last 24 Hour Vital Signs Date Time Temp Pulse Resp B/P (MAP) Pulse Ox O2 Delivery O2 Flow Rate FiO2 09/04/18 12:31 76 20 98 09/04/18 08:00 97.9 5 18 113/70 (84) 100 09/04/18 04:00 97.6 56 18 113/70 (84) 100 09/04/18 00:00 97.9 55 20 117/74 (88) 98 09/03/18 22:30 Nasal Cannula 3.0 09/03/18 22:30 98.6 56 18 150/81 (104) 96 09/03/18 22:20 98.3 60 15 113/77 98 Nasal Cannula 3 09/03/18 22:15 59 18 120/67 99 Nasal Cannula 3 09/03/18 22:05 68 13 117/66 98 Nasal Cannula 3 09/03/18 21:55 68 14 128/71 99 Nasal Cannula 3 09/03/18 21:45 68 15 111/66 100 Simple Mask 6 09/03/18 21:40 61 15 122/77 100 Simple Mask 6 09/03/18 21:40 64 20 99 09/03/18 21:35 98.0 69 20 154/78 100 Simple Mask 6 09/03/18 16:00 97.9 82 19 112/69 (83) 98 09/03/18 14:33 Room Air 09/03/18 14:31 Room Air Height (Feet): 5 Height (Inches): 6.00 Weight (Pounds): 153 Microbiology Date/Time Source Procedure Growth Status 09/03/18 20:47 Shoulder Right Gram Stain - Final Resulted 09/03/18 20:47 Shoulder Right Aerobic Culture Pending Resulted Laboratory Tests Test 09/03/18 16:20 09/03/18 22:00 09/04/18 12:15 White Blood Count 5.8 K/UL (4.8-10.8) 4.9 K/UL (4.8-10.8) Red Blood Count 4.37 M/UL (4.70-6.10) L 4.31 M/UL (4.70-6.10) L Hemoglobin 12.9 G/DL (14.2-18.0) L 12.9 G/DL (14.2-18.0) L Hematocrit 37.8 % (42.0-52.0) L 38.1 % (42.0-52.0) L Mean Corpuscular Volume 86 FL (80-99) 88 FL (80-99) Mean Corpuscular Hemoglobin 29.5 PG (27.0-31.0) 29.9 PG (27.0-31.0) Mean Corpuscular Hemoglobin Concent 34.1 G/DL (32.0-36.0) 33.8 G/DL (32.0-36.0) Red Cell Distribution Width 10.9 % (11.6-14.8) L 11.2 % (11.6-14.8) L Platelet Count 211 K/UL (150-450) 213 K/UL (150-450) Mean Platelet Volume 6.5 FL (6.5-10.1) 6.0 FL (6.5-10.1) L Neutrophils (%) (Auto) 51.4 % (45.0-75.0) 51.8 % (45.0-75.0) Lymphocytes (%) (Auto) 33.4 % (20.0-45.0) 33.0 % (20.0-45.0) Monocytes (%) (Auto) 7.3 % (1.0-10.0) 6.5 % (1.0-10.0) Eosinophils (%) (Auto) 6.3 % (0.0-3.0) H 7.2 % (0.0-3.0) H Basophils (%) (Auto) 1.6 % (0.0-2.0) 1.6 % (0.0-2.0) Erythrocyte Sedimentation Rate 33 MM/HR (0-15) H Prothrombin Time 13.8 SEC (9.30-11.50) H Prothromb Time International Ratio 1.3 (0.9-1.1) H Activated Partial Thromboplast Time 32 SEC (23-33) 29 SEC (23-33) Sodium Level 141 MMOL/L (136-145) Potassium Level 3.6 MMOL/L (3.5-5.1) Chloride Level 105 MMOL/L (98-107) Carbon Dioxide Level 26 MMOL/L (21-32) Anion Gap 10 mmol/L (5-15) Blood Urea Nitrogen 9 mg/dL (7-18) Creatinine 0.8 MG/DL (0.55-1.30) Estimat Glomerular Filtration Rate > 60 mL/min (>60) Glucose Level 95 MG/DL (74-106) Calcium Level 8.7 MG/DL (8.5-10.1) Total Bilirubin 1.1 MG/DL (0.2-1.0) H Direct Bilirubin 0.2 MG/DL (0.0-0.3) Aspartate Amino Transf (AST/SGOT) 55 U/L (15-37) H Alanine Aminotransferase (ALT/SGPT) 95 U/L (12-78) H Alkaline Phosphatase 154 U/L (46-116) H C-Reactive Protein, Quantitative 1.2 mg/dL (0.00-0.90) H Total Protein 7.4 G/DL (6.4-8.2) Albumin 3.7 G/DL (3.4-5.0) Globulin 3.7 g/dL HIV (1&2) Antibody Rapid Negative (NEGATIVE) Hepatitis C Antibody Pending Current Medications Medications (Trade) Dose Ordered Sig/Kelli Route PRN Reason Start Time Stop Time Status Last Admin Dose Admin Acetaminophen/ Hydrocodone Bitart ([place] 5/325) 1 tab Q4H PRN ORAL Moderate pain(4-6) 09/03/18 20:00 09/10/18 19:59 Cefepime HCl 2 gm/ Dextrose 100 ml @ 200 mls/hr Q12HR IVPB 09/04/18 21:00 09/11/18 20:59 UNV Dextrose/Sodium Chloride 1,000 ml @ 75 mls/hr Q13H IV 09/03/18 21:00 10/03/18 20:59 09/04/18 09:17 Docusate Sodium (Colace) 100 mg THREE TIMES A DAY ORAL 09/04/18 09:00 10/04/18 08:59 09/04/18 13:26 Heparin Sodium/ Dextrose 500 ml @ 19.48 mls/ hr ADJUST PER PROTOCOL IV 09/04/18 12:15 10/04/18 12:14 UNV Hydromorphone HCl (Dilaudid) 0.5 mg Q4H PRN SUBQ Severe Pain (Pain Scale 7-10) 09/03/18 20:09 09/10/18 20:08 Ondansetron HCl (Zofran) 4 mg Q6H PRN IVP Nausea & Vomiting 09/03/18 20:00 10/03/18 19:59 Oxycodone HCl (OxyCONTIN) 20 mg EVERY 12 HOURS ORAL 09/03/18 21:00 09/10/18 20:59 09/04/18 09:16 Temazepam (Restoril) 7.5 mg HSPRN PRN ORAL Insomnia 09/03/18 20:00 09/10/18 19:59 Vancomycin HCl (Vanco rx to dose) 1 ea DAILY PRN MISC Per rx protocol 09/03/18 20:00 10/03/18 19:59 Vancomycin HCl/ Dextrose 275 ml @ 183.333 mls/hr Q12H IVPB 09/03/18 21:30 09/08/18 21:29 09/04/18 09:16 Warfarin Sodium (Coumadin) 5 mg DAILY@17 ORAL 09/04/18 17:00 09/09/18 16:59 Iris Yo MD Sep 04, 2018 14:19
--- NOTE | 2018-09-04 14:41 | NUR ---
CASE MANAGEMENT:REVIEW 43 YR OLD MALE HERE FOR ELECTIVE SURGERY SI: RT SHOULDER INFECTION 97.9 82 19 112/69 98% ON RA H/H-12.9/37.8 AST/ALT+55/95 IS: TO SURGERY FOR: RT SHOULDER I&D. REPAIR OF DELTOID FASCIA DEHISCENCE COMPLEX WOUND CLOSURE : TO MED/SURG 3 RUST POST OP 09/04/18 SI: POD #1 97.9 56 18 113/70 100% ON 3L/NC IS: COUMADIN PO QD IV CEFEPIME Q12 HEPARIN GTT IV VANCOMYCIN Q12 IVF@75/HR OXYCONTIN PO Q12 : MED/SURG STATUS 3 RUST
[2018-09-04 16:00] VITALS: BP 122/77
--- NOTE | 2018-09-04 16:00 | NUR ---
NURSE NOTES: Received multiple calls from pharmacy regarding heparin drip, but unable to get of hold of Dr. Khan to clarify orders and to clarify if pt needs to be in a cardiac monitoring. RN called Dr Khan who stated that he will be in the floor in the next hour. I will f/u as needed.
[2018-09-04 20:00] VITALS: BP 134/77
--- NOTE | 2018-09-04 20:08 | NUR ---
HAND-OFF: Report given to Venancio CASTILLO, pt in stable condition. - Per Dr Khan to start heparin drip STAT and no need for heart monitoring. incoming nurse is aware and will f/u as needed.
--- NOTE | 2018-09-04 20:10 | General Progress Note ---
Assessment/Plan Assessment/Plan wouind infection s/p surgery had iand d antibiotic per id await culture result Subjective Date patient seen: Sep 04, 2018 Time patient seen: 20:09 Constitutional: Reports: no symptoms HEENT: Reports: no symptoms Allergies: Coded Allergies: No Known Allergies (Unverified , 08/01/18) Subjective has pain Objective Last 24 Hour Vital Signs Date Time Temp Pulse Resp B/P (MAP) Pulse Ox O2 Delivery O2 Flow Rate FiO2 09/04/18 16:00 97.7 60 21 122/77 (92) 97 09/04/18 12:31 76 20 98 09/04/18 12:00 97.7 59 19 106/71 (83) 97 09/04/18 09:46 97.7 09/04/18 09:00 Room Air 09/04/18 08:00 97.9 5 18 113/70 (84) 100 09/04/18 04:00 97.6 56 18 113/70 (84) 100 09/04/18 00:00 97.9 55 20 117/74 (88) 98 09/03/18 22:30 Nasal Cannula 3.0 09/03/18 22:30 98.6 56 18 150/81 (104) 96 09/03/18 22:20 98.3 60 15 113/77 98 Nasal Cannula 3 09/03/18 22:15 59 18 120/67 99 Nasal Cannula 3 09/03/18 22:05 68 13 117/66 98 Nasal Cannula 3 09/03/18 21:55 68 14 128/71 99 Nasal Cannula 3 09/03/18 21:45 68 15 111/66 100 Simple Mask 6 09/03/18 21:40 61 15 122/77 100 Simple Mask 6 09/03/18 21:40 64 20 99 09/03/18 21:35 98.0 69 20 154/78 100 Simple Mask 6 Intake and Output 09/03/18 09/04/18 19:00 07:00 Intake Total 600 ml Output Total 30 ml Balance 570 ml IV Total 600 ml Other 0 ml Output Estimated Blood Loss 30 ml # Bowel Movements 1 Laboratory Tests 09/03/18 22:00: Hepatitis C Antibody [Pending] 09/04/18 12:15: White Blood Count 4.9, Red Blood Count 4.31L, Hemoglobin 12.9L, Hematocrit 38.1L , Mean Corpuscular Volume 88, Mean Corpuscular Hemoglobin 29.9, Mean Corpuscular Hemoglobin Concent 33.8, Red Cell Distribution Width 11.2L, Platelet Count 213, Mean Platelet Volume 6.0L, Neutrophils (%) (Auto) 51.8, Lymphocytes (%) (Auto) 33.0, Monocytes (%) (Auto) 6.5, Eosinophils (%) (Auto) 7.2H, Basophils (%) (Auto) 1.6, Activated Partial Thromboplast Time 29 Height (Feet): 5 Height (Inches): 6.00 Weight (Pounds): 153 General Appearance: WD/WN Neck: non-tender Cardiovascular: normal rate, regular rhythm, other - mechantical s21 Respiratory/Chest: lungs clear Abdomen: non tender, soft Miguel Khan MD Sep 04, 2018 20:10
--- NOTE | 2018-09-04 20:10 | NUR ---
NURSE NOTES: Pt received from JONATHAN Ozuna alert and oriented x4, primarily Nepalese-speaking but speaks some Polish. No acute s/s of distress. IV site asymptomatic and patent - running to prescribed D5 1/2 NS at 75 ml/hr. Pt on room air, saturating at 97% with no SOB. Pt has sling on, dressing dry and intact on right shoulder. Bed in lowest position, call light and belongings within reach. Dr. Khan at bedside - stated that he wants pt on Heparin drip STAT. Continue Coumadin until INR is at 2.0, per Dr. Khan. Daily INRs. RN, Charge Nurse Patti, and Incoming Inspector Zulma explained to Dr. Khan about Hospital policy that Heparin for cardiac use for Tele. Per Dr. Khan, he does not need to be placed on transcription manager or transferred to tele.
--- NOTE | 2018-09-04 20:11 | Surgery Progress Note ---
Surgery Progress Note Subjective Reason for Consult patietn need to get bridge therpay was written fo rlovenox called to start heparin drip plan heparin drip no bolus nad follow coumaind check inr daily Objective Last 24 Hour Vital Signs Date Time Temp Pulse Resp B/P (MAP) Pulse Ox O2 Delivery O2 Flow Rate FiO2 09/04/18 16:00 97.7 60 21 122/77 (92) 97 09/04/18 12:31 76 20 98 09/04/18 12:00 97.7 59 19 106/71 (83) 97 09/04/18 09:46 97.7 09/04/18 09:00 Room Air 09/04/18 08:00 97.9 5 18 113/70 (84) 100 09/04/18 04:00 97.6 56 18 113/70 (84) 100 09/04/18 00:00 97.9 55 20 117/74 (88) 98 09/03/18 22:30 Nasal Cannula 3.0 09/03/18 22:30 98.6 56 18 150/81 (104) 96 09/03/18 22:20 98.3 60 15 113/77 98 Nasal Cannula 3 09/03/18 22:15 59 18 120/67 99 Nasal Cannula 3 09/03/18 22:05 68 13 117/66 98 Nasal Cannula 3 09/03/18 21:55 68 14 128/71 99 Nasal Cannula 3 09/03/18 21:45 68 15 111/66 100 Simple Mask 6 09/03/18 21:40 61 15 122/77 100 Simple Mask 6 09/03/18 21:40 64 20 99 09/03/18 21:35 98.0 69 20 154/78 100 Simple Mask 6 I&O Intake and Output 09/03/18 09/04/18 19:00 07:00 Intake Total 600 ml Output Total 30 ml Balance 570 ml IV Total 600 ml Other 0 ml Output Estimated Blood Loss 30 ml # Bowel Movements 1 Laboratory Tests Test 09/03/18 22:00 09/04/18 12:15 Hepatitis C Antibody Pending White Blood Count 4.9 K/UL (4.8-10.8) Red Blood Count 4.31 M/UL (4.70-6.10) L Hemoglobin 12.9 G/DL (14.2-18.0) L Hematocrit 38.1 % (42.0-52.0) L Mean Corpuscular Volume 88 FL (80-99) Mean Corpuscular Hemoglobin 29.9 PG (27.0-31.0) Mean Corpuscular Hemoglobin Concent 33.8 G/DL (32.0-36.0) Red Cell Distribution Width 11.2 % (11.6-14.8) L Platelet Count 213 K/UL (150-450) Mean Platelet Volume 6.0 FL (6.5-10.1) L Neutrophils (%) (Auto) 51.8 % (45.0-75.0) Lymphocytes (%) (Auto) 33.0 % (20.0-45.0) Monocytes (%) (Auto) 6.5 % (1.0-10.0) Eosinophils (%) (Auto) 7.2 % (0.0-3.0) H Basophils (%) (Auto) 1.6 % (0.0-2.0) Activated Partial Thromboplast Time 29 SEC (23-33) Miguel Khan MD Sep 04, 2018 20:11
[2018-09-04] MEDS: Warfarin Sodium 5mg ORAL SCH (20:33)
[2018-09-04 20:46] LABS: INR 1.1 (0.9-1.1)
[2018-09-05] VITALS (8 sets, daily range): BP systolic 123–141; BP diastolic 66–82
--- NOTE | 2018-09-05 00:30 | Consultation ---
DATE OF CONSULTATION: 09/04/2018 INFECTIOUS DISEASE CONSULTATION CONSULTING PHYSICIAN: Iris Yo M.D. ATTENDING PHYSICIAN: Keanu Doll M.D. REFERRING PHYSICIAN: Keanu Doll M.D. REASON FOR CONSULTATION: Infected right shoulder. CHIEF COMPLAINT: The patient's chief complaint coming in to the hospital is right shoulder infection. HISTORY OF PRESENT ILLNESS: This is a very pleasant 43-year-old male, who has a history of acromioclavicular joint stabilization. I believe he had some type of accident. The patient developed approximately a week after the AC joint stabilization procedure, approximately a week after that, he had mild serous drainage. The patient was given oral antibiotics. He grew out Propionibacterium acne per the records. The patient was given doxycycline and the wound was healing well. However, there was still some serous drainage. At this time, because of the persistent range, it was felt that an exploration and I and D of the right shoulder was indicated. The patient had a right shoulder incision and drainage procedure that was deep and repair of deltoid fascia dehiscence and complex wound closure. Infectious Disease consultation was requested for antibiotic management in this patient. Cultures from the surgery from yesterday are pending. The patient was placed on vancomycin and cefepime pending culture results. Case communicated with Dr. Doll. Case discussed with the patient. REVIEW OF SYSTEMS: CONSTITUTIONAL: The main issue is postoperative right shoulder pain. He has no fevers. No mention of headache or chest pain. No nausea, vomiting, or diarrhea. No Orozco. PULMONARY: No congestion or shortness of breath. SKIN: No rash or itching. EXTREMITY: He has right shoulder pain. NEUROLOGIC: No seizures mentioned. PAST MEDICAL HISTORY: I believe he has had an accident and trauma to the right shoulder requiring acromioclavicular joint stabilization or AC joint stabilization. He has history of serous wound drainage after the surgery. No history of diabetes or hypertension mentioned. He does have a history of aortic valve replacement in the past and he is on Coumadin for that. ALLERGIES: No known drug allergies. SOCIAL HISTORY: Negative for smoking, alcohol, or drug abuse. FAMILY HISTORY: Noncontributory. MEDICATIONS: Upon reviewing the MAR, he is on the following medications. He is on vancomycin and cefepime. He is on morphine. He is on heparin. He is on docusate. He is on antibiotics, vancomycin and cefepime. He is on OxyContin. He is on hydromorphone and Dilaudid as needed, Haskins, Zofran, and Restoril. As I mentioned, in the outpatient setting, he has been on warfarin. PHYSICAL EXAMINATION: VITAL SIGNS: Temperature is 97.9, pulse rate 76, respiratory rate 20, saturation 98%, and blood pressure 113/70. GENERAL: Alert, responsive, and in no distress. HEAD AND NECK: Oral exam, no thrush. Eye exam, no icterus. Neck is supple. Normocephalic. HEART: Regular with a 1/6 systolic murmur. ABDOMEN: Soft. Positive bowel sounds. LUNGS: Clear bilaterally. No rhonchi or rales. SKIN: No rash. MUSCULOSKELETAL: No effusion. Legs are without cellulitis. PERIPHERAL VASCULAR: No cyanosis. NEUROLOGIC: Intact. Alert and oriented x3. LINES: Line sites are without phlebitis. GENITOURINARY: No Orozco. His right shoulder is covered. LABORATORY DATA: Cultures from the surgery are pending at this time. Creatinine is 0.8. White count 4.9 and hemoglobin 12.9. Sedimentation rate is 33. Creatinine 0.8. LFTs were noted. Cultures from the surgery is pending. Human immunodeficiency virus test is negative. Hepatitis has been ordered. No imaging studies. ASSESSMENT AND PLAN: 1. The patient has a right shoulder infection status post incision and drainage. It seems like the patient had serous drainage from the procedure that was treated by doxycycline as an outpatient for Propionibacterium acne infection. This seems like the wound healed well. However, the patient had persistent drainage from the wound, it looks like serous drainage. The patient again is status post I and D of the right shoulder infected wound in shoulder and cultures are pending at this time. In addition, he had a repair of the deltoid fascia dehiscence and complex wound closure. We will continue with antibiotics, vancomycin and cefepime for now to cover gram-negative and gram-positive cocci and Staph aureus and this also will cover the Propionibacterium acne well. Continue vancomycin and cefepime. Check cultures from the right shoulder surgery, the incision and drainage. Once we get the cultures back, we will adjust antibiotics, but continue vancomycin and cefepime for now pending cultures. Watch creatinine closely. 2. The patient has history of trauma to the right shoulder I believe in an accident and he is status post acromioclavicular joint stabilization or AC joint stabilization. 3. Aortic valve replacement. He has been on warfarin. He is getting heparin now. 4. No history of diabetes or hypertension. 5. Pain management per primary and orthopedic surgery. 6. Allergies are negative. 7. Social history is negative. 8. Family history is noncontributory. 9. MAR was noted. 10. Case was discussed with RN. 11. Continue treatment per primary consultants. 12. Case communicated with Dr. Doll. Iris Yo M.D. DR: ELEN JOB#: [id number] CC:
[2018-09-05 03:40] LABS: ANION GAP 9 mmol/L (5-15); BLOOD UREA NITROGEN 10 mg/dL (7-18); CARBON DIOXIDE 28 MMOL/L (21-32); CHLORIDE 104 MMOL/L (98-107); CREATININE 0.9 MG/DL (0.55-1.30); POTASSIUM 3.4 MMOL/L (3.5-5.1); SODIUM 141 MMOL/L (136-145)
[2018-09-05] MEDS ORDERED: Heparin 25,000u/D5W 500ml 500 ML IV SCH ×2 (06:00→14:15)
[2018-09-05] MEDS ORDERED: Heparin 5000 units/ml inj IV SCH ×2 (06:00→21:15)
--- NOTE | 2018-09-05 07:25 | NUR ---
HAND-OFF: Report given to JONATHAN Ozuna.
--- NOTE | 2018-09-05 08:00 | NUR ---
NURSE NOTES: Received report from Darron RN, pt a/a/o x4 laying in bed with no signs of distress or other issues at this time. surgical dressing dry and intact. IV on the left hand gauge#22 and left FA gauge #20 running hep drip @22.045ml/hr. per MD INR goal to be 2 and the hep gtt will be discontinue. call light within reach. bed in lowest position. side rales upx2. I will f/u as needed.
[2018-09-05] MEDS: oxyCONTIN 20mg tab ORAL SCH ×2 (09:25→22:07)
[2018-09-05] MEDS: D5 1/2NS 1,000 ML IV SCH ×2 (09:25→23:51)
[2018-09-05] MEDS: Docusate 100mg cap ORAL SCH ×3 (09:25→18:22)
--- NOTE | 2018-09-05 09:30 | NUR ---
NURSE NOTES: Received a call form stating that pt's blood cultures are positive for: Gram positive Cocci, in chains x1 blood. RN called Dr. Mauricio to inform of the lab results. No others received. I will f/u as needed.
[2018-09-05 09:41] LABS: INR 1.1 (0.9-1.1)
--- NOTE | 2018-09-05 10:15 | Progress Note ---
DATE: 09/04/2018 SUBJECTIVE: The patient is status post incision and drainage of right shoulder. Patient reports that the pain is substantially improved. OBJECTIVE: Examination shows dressing is clean, dry, intact. Neurovascular is normal. ASSESSMENT: 1. Status post incision and drainage, right shoulder. 2. Status post right shoulder AC joint reconstruction. DISCUSSION: At this point, I recommend is to go ahead and continue the vancomycin until the culture results come back. I have asked Dr. Nicole to see the patient for recommendation regarding oral antibiotic treatment most likely he is going to need daptomycin drug. In terms of his mechanical valve, is on Coumadin. We are going to continue to maintain him on that. Based on the culture results, further recommendations can be made. Potential discharge planning for tomorrow Sunday. Keanu Doll M.D. DR: Jarrod JOB#: [id number] CC: LUIS M
[2018-09-05] MEDS: Vancomycin 1.25gm Premix IVPB SCH ×2 (10:30→23:44)
--- NOTE | 2018-09-05 14:12 | General Progress Note ---
Assessment/Plan Assessment/Plan wouind infection s/p surgery had iand d antibiotic per id await culture result one positive blood cuturel will follow get cardiology to see. Subjective Date patient seen: Sep 05, 2018 Time patient seen: 14:11 Constitutional: Reports: no symptoms HEENT: Reports: no symptoms Cardiovascular: Reports: no symptoms Allergies: Coded Allergies: No Known Allergies (Unverified , 08/01/18) Subjective has pain Objective Last 24 Hour Vital Signs Date Time Temp Pulse Resp B/P (MAP) Pulse Ox O2 Delivery O2 Flow Rate FiO2 09/05/18 12:00 98.5 55 19 134/77 (96) 95 09/05/18 09:55 98.4 09/05/18 09:00 Room Air 09/05/18 08:00 97.6 56 18 138/78 (98) 96 09/05/18 04:00 98.4 57 17 123/66 (85) 98 09/05/18 00:00 98.7 57 18 136/81 (99) 97 09/04/18 21:00 Room Air 09/04/18 20:00 98.0 59 17 134/77 (96) 97 09/04/18 16:00 97.7 60 21 122/77 (92) 97 Intake and Output 09/04/18 09/05/18 19:00 07:00 Intake Total 960 ml 1430.106 ml Balance 960 ml 1430.106 ml Intake Oral 960 ml 480 ml IV Total 950.106 ml # Voids 2 # Bowel Movements 1 1 Laboratory Tests 09/04/18 20:18: Prothrombin Time 11.7H, Prothromb Time International Ratio 1.1, Activated Partial Thromboplast Time 29 09/05/18 03:15: Activated Partial Thromboplast Time 41H, Sodium Level 141, Potassium Level 3.4L , Chloride Level 104, Carbon Dioxide Level 28, Anion Gap 9, Blood Urea Nitrogen 10, Creatinine 0.9, Estimat Glomerular Filtration Rate > 60, Glucose Level 121H , Calcium Level 8.0L 09/05/18 09:00: Prothrombin Time 11.4, Prothromb Time International Ratio 1.1 09/05/18 12:40: Activated Partial Thromboplast Time 103H Height (Feet): 5 Height (Inches): 6.00 Weight (Pounds): 153 General Appearance: WD/WN Neck: non-tender Cardiovascular: normal rate, regular rhythm, other - s1, s2 mechanical Respiratory/Chest: lungs clear Miguel Khan MD Sep 05, 2018 14:12
--- NOTE | 2018-09-05 16:18 | NUR ---
CASE MANAGEMENT:REVIEW 09/05/18 SI: POD #2 98.5 55 19 134/77 95% on ra K-3.4 IS: COUMADIN PO QD IV CEFEPIME Q12 HEPARIN GTT IV VANCOMYCIN Q12 IVF@75/HR OXYCONTIN PO Q12 : MED/SURG STATUS 3 [facility]
[2018-09-05] MEDS: Warfarin Sodium 5mg ORAL SCH (18:22)
[2018-09-05] MEDS ORDERED: D5 1/2NS 1000ml IV ONE (19:06)
--- NOTE | 2018-09-05 19:08 | Consultation ---
Consult Note Assessment/Plan Chart reviewed, Patient examined. Case discussed with and RN. Will discuss with Dr. Khan P: 2D Echo EKG Increase Coumadin to 7.5 mg/day. Continue Heparin until INR >2 . Will follow. Tariq Rm MD Sep 05, 2018 19:08
--- NOTE | 2018-09-05 20:11 | NUR ---
HAND-OFF: Report given to Hawa CASTILLO, pt in stable condition.
--- NOTE | 2018-09-05 20:45 | NUR ---
NURSE NOTES: Spoke to pharmacist, Marialuisa, regarding PTT of 62; states she will contact re: high risk bleed and whether or not to increase Heparin drip rate. Will continue to monitor.
--- NOTE | 2018-09-05 21:00 | NUR ---
NURSE NOTES: Per pharmacist, Dr. Rm stated to just follow the Heparin drip protocol. Will continue to monitor.
--- NOTE | 2018-09-05 21:15 | Consultation ---
DATE OF CONSULTATION: 09/05/2018 CARDIOLOGY CONSULTATION CONSULTING PHYSICIAN: Tariq Rm M.D. ATTENDING PHYSICIAN: 1. Keanu Doll M.D. 2. Miguel Khan M.D. REASON FOR CONSULTATION: Possible SBE. HISTORY OF PRESENT ILLNESS: The patient is a 43-year-old male with history of aortic valve replacement with mechanical valve who has been on Coumadin on a chronic basis. The patient has history of a right shoulder trauma and underwent surgical intervention about 2 weeks ago. About a week after surgery, the patient developed serous discharge off the wound area and was finally admitted for debridement of the wounds. The patient has been given antibiotics prior to surgery and has been started on vancomycin and cefepime since yesterday after being evaluated by Dr. Yo. The patient denies fever, chills or night sweats and denies shortness of breath or chest pain. PAST MEDICAL HISTORY: Significant for aortic valve replacement as noted above as well as history of right shoulder trauma. MEDICATIONS: The patient takes Coumadin 7.5 milligrams daily at home. His current medications include Coumadin 5 mg daily, heparin drip while Coumadin is being titrated, cefepime and vancomycin IV, oxycodone as needed. REVIEW OF SYSTEMS: GENERAL: Denies weight loss, fever, chills, or night sweats. HEENT: Denies headache or sinus problem. PULMONARY: Denies cough, sputum production. CARDIOVASCULAR: Denies chest pain, palpitations, PND or orthopnea. No lower extremity edema. GASTROINTESTINAL: Denies dysphagia, dyspepsia, abdominal pain, nausea, vomiting, diarrhea, or constipation. GENITOURINARY: Denies dysuria, hematuria. MUSCULOSKELETAL: Complains of shoulder pain. PHYSICAL EXAMINATION: VITAL SIGNS: Blood pressure is 141/82, temperature afebrile, heart rate is 62. HEENT: Unremarkable. NECK: Supple. LUNGS: Clear. CARDIAC: Mechanical aortic valve sounds are noted. There is 1/6 systolic murmur at the aortic area. Jugular venous pressure is normal. ABDOMEN: Soft, nontender. Bowel sounds are present. EXTREMITIES: Without edema. LABORATORY AND DIAGNOSTIC DATA: EKG is pending. Laboratory data reviewed. IMPRESSION: 1. Status post aortic valve replacement. 2. Status post right shoulder surgery. 3. Infected wound of the shoulder. 4. Rule out SBE. 5. Chronic anticoagulation with Coumadin, currently subtherapeutic on Coumadin but on heparin drip. FINAL SUGGESTION: We will obtain an echocardiogram to assess aortic valve. We will obtain an EKG and increase Coumadin 7.5 milligrams daily to improve anticoagulation and discontinuation of heparin drip when INR is within 2.5 to 3 range. Antibiotics will be continued as per Infectious Diseases netsuite consultant. If necessary, we will consider a NIA to evaluate aortic valve. Dr. Khan, thank you for allowing me to participate in the care of this patient and I will be happy to follow with you as necessary. Tariq Rm M.D. DR: Teresa JOB#: [id number] CC: Tariq Rm M.D.; Fax#: [phone]
[2018-09-05] MEDS: Heparin 25,000u/D5W 500ml 500 ML IV SCH (22:10)
[2018-09-06] VITALS: BP 133/77
--- NOTE | 2018-09-06 03:40 | NUR ---
NURSE NOTES: Recvd Pt from day shift nurse; Patient resting in bed A/O X 4; VSS; meds given and tolerated well; bed at lowest position; bedside table and call light within reach
[2018-09-06 04:00] VITALS: BP 118/72
[2018-09-06 04:58] LABS: INR 1.2 (0.9-1.1)
[2018-09-06] MEDS: Vancomycin 1gm/D5W 275ml IVPB SCH ×6 (06:10→21:45)
--- NOTE | 2018-09-06 07:30 | NUR ---
HAND-OFF: Report given to JONATHAN Schmitt.
--- NOTE | 2018-09-06 07:30 | NUR ---
NURSE NOTES: Report received from outgoing nurse, rounds made. Patient sleeping, in supine position in bed, at bedside. No distress noted, on RA. LH IV sites x2, intact, site asymptomatic. Heparin GTT infusing as ordered, no active bleeding noted. IVF infusing as ordered. Right shoulder dressing with shadow drainage, light bloody. Vitals stable, afebrile, no odor. Coumadin ordered for 1700. Call light in reach, bed in lowest position, will continue to monitor.
[2018-09-06 08:00] VITALS: BP 119/71
[2018-09-06] MEDS: oxyCONTIN 20mg tab ORAL SCH ×2 (10:19→20:38)
[2018-09-06] MEDS: Docusate 100mg cap ORAL SCH ×3 (10:19→18:32)
[2018-09-06 12:00] VITALS: BP 112/71
[2018-09-06] MEDS: D5 1/2NS 1,000 ML IV SCH (13:48)
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
[2018-09-06] MEDS ORDERED: D5 1/2NS 1000ml IV ONE (15:53)
[2018-09-06 16:00] VITALS: BP 130/72
[2018-09-06] MEDS: Heparin 25,000u/D5W 500ml 500 ML IV SCH (16:04)
[2018-09-06] MEDS ORDERED: Warfarin Sodium 7.5mg ORAL SCH (17:00)
--- NOTE | 2018-09-06 17:16 | Cardiology Report ---
APPROVED REPORT EXAM: Two-dimensional and M-mode echocardiogram with Doppler and color Doppler. INDICATION [place] M-Mode DIMENSIONS LVDd5.7 (3.5-5.6cm) PWd1.3 (0.7-1.1cm) IVSs1.9 cm LVDs3.7 (2.5-4.0cm) PWs2.1 cm Mild left ventricular enlargement. Mildly depressed left ventricular systolic function and wall motion. Left ventricular ejection fraction estimated to be 50-55 %. Mild left ventricular hypertrophy. No evidence of pericardial effusion. All other cardiac chamber sizes are within normal limits. Aortic prosthetic valve replacement noted with adequate cusp excursion. Mildly thickened mitral valve leaflets with normal excursion. Mild mitral annulus and aortic root calcification. Normal pulmonic valve structure. Normal tricuspid valve structure. IVC is normal in size with physiological collapse. No discrete vegitations seen. A color flow and spectral Doppler study was performed and revealed: Trace aortic insufficiency. Aortic valve peak aortic valve gradient of 20 mmHg and a mean of 10 mmHg. Trace mitral regurgitation. Normal left ventricular diastolic function. Trace tricuspid regurgitation. Tricuspid systolic velocities suggests peak right ventricular systolic pressure of 27 mmHg. Trace pulmonic regurgitation present.
--- NOTE | 2018-09-06 17:30 | NUR ---
NURSE NOTES: Patient alert, oriented x4, calm. Up to bathroom and ambulating in halls with spouse, without sling, denies pain. Right shoulder dressing remains unchanged. Heparin GTT continues as ordered, no active bleeding. Will continue to monitor.
--- NOTE | 2018-09-06 17:54 | Cardiology Progress Note ---
Assessment/Plan Status Narrative s/p AVR S/p R shoulder surgyWound infection Bacteremia R/O SBE Echo reviewed- No definite vegetations seen . Aortic valve with good function. Assessment/Plan Continue ABX as per ID Wound care Ambulate Coumadin 7.5 mg/day Heparin drip until PT INR > 2.5 Subjective Cardiovascular: Reports: no symptoms Respiratory: Reports: no symptoms Gastrointestinal/Abdominal: Reports: no symptoms, difficulty swallowing Genitourinary: Reports: no symptoms Subjective No pain. Has drainage from R shoulder dressing. Objective Last 24 Hour Vital Signs Date Time Temp Pulse Resp B/P (MAP) Pulse Ox O2 Delivery O2 Flow Rate FiO2 09/06/18 04:00 97.7 46 18 118/72 (87) 97 09/06/18 00:00 98.7 49 14 133/77 (95) 95 09/05/18 21:00 Room Air 09/05/18 20:00 98.7 49 14 133/77 (95) 95 EENT: PERRL/EOMI Neck: non-tender, supple, no JVD Cardiovascular: normal peripheral pulses, normal rate, regular rhythm, other - Mechanical aortic valve Abdomen: normal bowel sounds, non tender, soft, no organomegaly, no mass Extremities: normal range of motion, non-tender, normal inspection, no calf tenderness, no swelling Intake and Output 09/05/18 09/06/18 19:00 07:00 Intake Total 1775 ml 1067.101 ml Output Total 900 ml Balance 1775 ml 167.101 ml Intake Oral 800 ml IV Total 975 ml 1067.101 ml Output Urine Total 900 ml # Voids 3 # Bowel Movements 1 Laboratory Tests Test 09/05/18 20:20 09/06/18 04:00 Activated Partial Thromboplast Time 62 SEC (23-33) H 92 SEC (23-33) H Vancomycin Level Trough 10.3 ug/mL (5.0-12.0) Prothrombin Time 12.5 SEC (9.30-11.50) H Prothromb Time International Ratio 1.2 (0.9-1.1) H Microbiology Date/Time Source Procedure Growth Status 09/03/18 20:38 Blood Blood Culture - Preliminary NO GROWTH AFTER 48 HOURS Resulted 09/03/18 20:38 Blood Blood Culture - Preliminary Streptococcus Species Resulted 09/04/18 20:47 Shoulder Right Anaerobic Culture - Preliminary NO GROWTH AFTER 48 HOURS Resulted 09/03/18 20:47 Tissue Gram Stain - Final Resulted 09/03/18 20:47 Tissue Aerobic Culture - Preliminary NO GROWTH AFTER 48 HOURS Resulted 09/03/18 20:47 Shoulder Right Gram Stain - Final Resulted 09/03/18 20:47 Shoulder Right Aerobic Culture - Preliminary NO GROWTH AFTER 48 HOURS Resulted Tariq Rm MD Sep 06, 2018 17:54
--- NOTE | 2018-09-06 19:30 | NUR ---
HAND-OFF: Report given to Hawa CASTILLO.
[2018-09-06 20:00] VITALS: BP 139/83
--- NOTE | 2018-09-06 20:00 | NUR ---
NURSE NOTES: Received patient in bed, alert and oriented x4 with family member at bed side. IV sites x2, intact, site asymptomatic. Heparin GTT infusing as ordered, no active bleeding noted. Right shoulder dressing with shadow drainage, light bloody. Vitals stable. Patient complained of pain on his right shoulder. Bed at the lowest position, bed alarms active and call light within reach. Will continue to monitor.
--- NOTE | 2018-09-06 21:14 | General Progress Note ---
Assessment/Plan Problem List: (1) right shoulder infection (2) History of shoulder surgery ICD Codes: Z98.890 - Other specified postprocedural states SNOMED: 736024337 (3) S/P AVR (aortic valve replacement) ICD Codes: Z95.2 - Presence of prosthetic heart valve SNOMED: 53207237, 22859939, 8499728153020 (4) Bacteremia ICD Codes: R78.81 - Bacteremia SNOMED: 3882228 Assessment/Plan Abxs per ID anticoagulation Cardiology and ID F/U Follow labs Subjective Allergies: Coded Allergies: No Known Allergies (Unverified , 08/01/18) Subjective In NAD Objective Last 24 Hour Vital Signs Date Time Temp Pulse Resp B/P (MAP) Pulse Ox O2 Delivery O2 Flow Rate FiO2 09/06/18 16:00 98.8 57 18 130/72 (91) 95 09/06/18 12:00 97.9 54 18 112/71 (85) 100 09/06/18 09:00 Room Air 09/06/18 08:00 97.6 43 17 119/71 (87) 100 09/06/18 04:00 97.7 46 18 118/72 (87) 97 09/06/18 00:00 98.7 49 14 133/77 (95) 95 Intake and Output 09/05/18 09/06/18 19:00 07:00 Intake Total 1775 ml 1067.101 ml Output Total 900 ml Balance 1775 ml 167.101 ml Intake Oral 800 ml IV Total 975 ml 1067.101 ml Output Urine Total 900 ml # Voids 3 # Bowel Movements 1 Laboratory Tests 09/06/18 04:00: Prothrombin Time 12.5H, Prothromb Time International Ratio 1.2H, Activated Partial Thromboplast Time 92H Height (Feet): 5 Height (Inches): 6.00 Weight (Pounds): 153 Cardiovascular: normal rate Respiratory/Chest: lungs clear Edema: no edema noted Phill Desouza MD Sep 06, 2018 21:14
[2018-09-06] MEDS: HYDROcodone/Acetamin 5/325 tab ORAL PRN (21:51)
--- NOTE | 2018-09-06 22:00 | NUR ---
NURSE NOTES: Applied 4x4 and tegaderm to rt shoulder after Dr. Doll remove dressing to assess wound; per Dr. Doll, no need to change dressing until he orders. Will continue to monitor.
--- NOTE | 2018-09-06 22:45 | Progress Note ---
DATE: 09/06/2018 SUBJECTIVE: The patient had an echocardiogram which was unremarkable. At this point, he had one positive blood culture which may be contaminant. We are going to recheck the blood cultures. If they are negative, then we can just prophalactic treat for shoulder infection. Examination shows mild serous drainage. The patient is afebrile with stable vital signs. The patient is neurovascularly intact. ASSESSMENT: Status post incision and drainage of right shoulder. DISCUSSION: At this point, echocardiogram was unremarkable; therefore, at this point, vegetation to be concerned about. We are going to check another set of blood cultures to see if the first ones were contaminant which I believe they were. Culture results from the surgery have been negative to date but most likely he has P. acnes infection therefore oral antibiotics for 6 to 12 weeks would be reasonable. We are going to work on discharge planning once his INR is above 2.0 to 2.5. Keanu Doll M.D. DR: Gregor JOB#: [id number] CC: LUIS M
[2018-09-07 00:32] VITALS: BP 121/69
[2018-09-07 04:00] VITALS: BP 132/73
[2018-09-07] MEDS: D5 1/2NS 1,000 ML IV SCH (04:10)
[2018-09-07 04:22] LABS: BASOPHILS % (AUTO) 1.6 % (0.0-2.0); EOSINOPHILS % (AUTO) 10.1 % (0.0-3.0); HEMATOCRIT 38.4 % (42.0-52.0); HEMOGLOBIN 13.1 G/DL (14.2-18.0); LYMPHOCYTES % (AUTO) 35.8 % (20.0-45.0); MEAN CORPUSCULAR VOLUME 88 FL (80-99); MONOCYTES % (AUTO) 7.9 % (1.0-10.0); NEUTROPHILS % (AUTO) 44.6 % (45.0-75.0); PLATELET COUNT 206 K/UL (150-450); RED BLOOD COUNT 4.36 M/UL (4.70-6.10)
[2018-09-07 04:43] LABS: ALANINE AMINOTRANSFERASE 69 U/L (12-78); ALBUMIN 3.4 G/DL (3.4-5.0); ALBUMIN/GLOBULIN RATIO 0.9 (1.0-2.7); ALKALINE PHOSPHATASE 145 U/L (46-116); ANION GAP 9 mmol/L (5-15); ASPARTATE AMINO TRANSFERASE 37 U/L (15-37); BILIRUBIN,TOTAL 0.6 MG/DL (0.2-1.0); BLOOD UREA NITROGEN 9 mg/dL (7-18); CALCIUM 8.9 MG/DL (8.5-10.1); CARBON DIOXIDE 28 MMOL/L (21-32); CHLORIDE 103 MMOL/L (98-107); POTASSIUM 3.6 MMOL/L (3.5-5.1); SODIUM 140 MMOL/L (136-145)
[2018-09-07 04:45] LABS: INR 1.4 (0.9-1.1)
[2018-09-07] MEDS: Vancomycin 1gm/D5W 275ml IVPB SCH ×6 (06:11→23:47)
--- NOTE | 2018-09-07 07:25 | NUR ---
HAND-OFF: Report given to JONATHAN Schmitt.
--- NOTE | 2018-09-07 07:35 | NUR ---
NURSE NOTES: Report received from outgoing nurse, rounds made. Patient sleeping in supine position, in bed. No distress on RA. Right shoulder dressing remains CDI. LH IV x2, intact, asymptomatic, infusing Heparin GTT, no active bleeding noted. Spouse at bedside. Call light in reach, bed in lowest position, will continue to monitor.
[2018-09-07 08:00] VITALS: BP 119/73
[2018-09-07] MEDS: Docusate 100mg cap ORAL SCH ×3 (09:23→18:21)
[2018-09-07] MEDS: oxyCONTIN 20mg tab ORAL SCH ×2 (09:24→21:48)
[2018-09-07] MEDS ORDERED: Tubing IV Secondary IV ONE (10:45)
[2018-09-07] MEDS ORDERED: D5 1/2NS 1000ml IV ONE (10:45)
--- NOTE | 2018-09-07 10:55 | NUR ---
NURSE NOTES: Patient tolerated PO fluids, no NV, voiding well per urinal/BRP. IVF discontinued per MD order. Will continue to monitor.
[2018-09-07 12:00] VITALS: BP 110/71
[2018-09-07 12:09] LABS: BASOPHILS % (AUTO) 1.3 % (0.0-2.0); EOSINOPHILS % (AUTO) 8.9 % (0.0-3.0); HEMATOCRIT 39.6 % (42.0-52.0); HEMOGLOBIN 13.5 G/DL (14.2-18.0); LYMPHOCYTES % (AUTO) 27.5 % (20.0-45.0); MEAN CORPUSCULAR VOLUME 88 FL (80-99); MONOCYTES % (AUTO) 6.9 % (1.0-10.0); NEUTROPHILS % (AUTO) 55.4 % (45.0-75.0); PLATELET COUNT 209 K/UL (150-450); RED CELL DISTRIBUTION WIDTH 10.9 % (11.6-14.8); WHITE BLOOD COUNT 6.3 K/UL (4.8-10.8)
[2018-09-07] MEDS: Heparin 25,000u/D5W 500ml 500 ML IV SCH (13:22)
[2018-09-07 16:00] VITALS: BP 126/82
[2018-09-07] MEDS ORDERED: Warfarin Sodium 10mg ORAL SCH (17:00)
[2018-09-07] MEDS: Warfarin Sodium 10mg ORAL SCH (17:15)
--- NOTE | 2018-09-07 19:15 | General Progress Note ---
Assessment/Plan Problem List: (1) right shoulder infection (2) History of shoulder surgery ICD Codes: Z98.890 - Other specified postprocedural states SNOMED: 673916318 (3) S/P AVR (aortic valve replacement) ICD Codes: Z95.2 - Presence of prosthetic heart valve SNOMED: 66861896, 33136773, [id number] (4) Bacteremia ICD Codes: R78.81 - Bacteremia SNOMED: 4905805 Assessment/Plan Abxs per ID anticoagulation Cardiology and ID F/U Follow labs Subjective Allergies: Coded Allergies: No Known Allergies (Unverified , 08/01/18) Subjective No new complaints Objective Last 24 Hour Vital Signs Date Time Temp Pulse Resp B/P (MAP) Pulse Ox O2 Delivery O2 Flow Rate FiO2 09/07/18 09:00 Room Air 09/07/18 08:00 98.4 54 18 119/73 (88) 98 09/07/18 04:00 97.9 53 18 132/73 (92) 97 09/07/18 00:32 98.4 66 17 121/69 (86) 96 09/06/18 23:40 Room Air 09/06/18 20:00 99.3 53 18 139/83 (101) 96 Intake and Output 09/06/18 09/07/18 19:00 07:00 Intake Total 1955.495 ml 1736.748 ml Balance 1955.495 ml 1736.748 ml Intake Oral 1080 ml 240 ml IV Total 875.495 ml 1496.748 ml # Voids 5 2 Laboratory Tests 09/06/18 21:00: Vancomycin Level Trough 16.1H 09/07/18 04:00: White Blood Count 6.0, Red Blood Count 4.36L, Hemoglobin 13.1L, Hematocrit 38.4L , Mean Corpuscular Volume 88, Mean Corpuscular Hemoglobin 30.1, Mean Corpuscular Hemoglobin Concent 34.1, Red Cell Distribution Width 11.0L, Platelet Count 206, Mean Platelet Volume 6.3L, Neutrophils (%) (Auto) 44.6L, Lymphocytes (%) (Auto) 35.8, Monocytes (%) (Auto) 7.9, Eosinophils (%) (Auto) 10.1H, Basophils (%) (Auto) 1.6, Prothrombin Time 14.6H, Prothromb Time International Ratio 1.4H, Sodium Level 140, Potassium Level 3.6, Chloride Level 103, Carbon Dioxide Level 28, Anion Gap 9, Blood Urea Nitrogen 9, Creatinine 1.0 , Estimat Glomerular Filtration Rate > 60, Glucose Level 121H, Calcium Level 8.9 , Total Bilirubin 0.6, Aspartate Amino Transf (AST/SGOT) 37, Alanine Aminotransferase (ALT/SGPT) 69, Alkaline Phosphatase 145H, Total Protein 7.1, Albumin 3.4, Globulin 3.7, Albumin/Globulin Ratio 0.9L 09/07/18 04:08: Activated Partial Thromboplast Time 88H 09/07/18 11:50: White Blood Count 6.3, Red Blood Count 4.50L, Hemoglobin 13.5L, Hematocrit 39.6L , Mean Corpuscular Volume 88, Mean Corpuscular Hemoglobin 30.0, Mean Corpuscular Hemoglobin Concent 34.1, Red Cell Distribution Width 10.9L, Platelet Count 209, Mean Platelet Volume 6.8, Neutrophils (%) (Auto) 55.4, Lymphocytes (%) (Auto) 27.5, Monocytes (%) (Auto) 6.9, Eosinophils (%) (Auto) 8.9H, Basophils (%) (Auto) 1.3 Height (Feet): 5 Height (Inches): 6.00 Weight (Pounds): 153 Cardiovascular: normal rate Respiratory/Chest: lungs clear Edema: no edema noted Generalized Phill Roberts MD Sep 07, 2018 19:15
--- NOTE | 2018-09-07 19:55 | NUR ---
HAND-OFF: Report given to Juliet CASTILLO.
[2018-09-07 20:00] VITALS: BP 125/76
--- NOTE | 2018-09-07 20:11 | NUR ---
NURSE NOTES: Received patient awake in bed, no s/s of acute distress, no c/o pain at this time. IV access asymptomatic, on saline lock. PICC noted on left arm, double lumen, TPN running. Fall and safety precautions taken. Call light and belongings within reach. Addendum: 09/07/18 at 2014 by Juliet Pike RN wrong patient, disregard.
--- NOTE | 2018-09-07 23:49 | Cardiology Progress Note ---
Assessment/Plan Status Narrative s/p AVR S/p R shoulder surgyWound infection Bacteremia R/O SBE Assessment/Plan Continue ABX as per ID Wound care Ambulate Coumadin increased to 10 mg/day Heparin drip until PT INR > 2.5 Subjective Cardiovascular: Reports: no symptoms Respiratory: Reports: no symptoms Gastrointestinal/Abdominal: Reports: no symptoms Genitourinary: Reports: no symptoms Subjective No pain. Has drainage from R shoulder dressing. Objective Last 24 Hour Vital Signs Date Time Temp Pulse Resp B/P (MAP) Pulse Ox O2 Delivery O2 Flow Rate FiO2 09/07/18 16:00 98.7 64 20 126/82 (97) 98 09/07/18 12:00 99.1 59 18 110/71 (84) 98 09/07/18 09:00 Room Air 09/07/18 08:00 98.4 54 18 119/73 (88) 98 09/07/18 04:00 97.9 53 18 132/73 (92) 97 09/07/18 00:32 98.4 66 17 121/69 (86) 96 Cardiovascular: normal rate, regular rhythm Respiratory/Chest: lungs clear Abdomen: normal bowel sounds, non tender, soft, no organomegaly, no mass Extremities: non-tender, normal inspection Intake and Output 09/06/18 09/07/18 19:00 07:00 Intake Total 1955.495 ml 1736.748 ml Balance 1955.495 ml 1736.748 ml Intake Oral 1080 ml 240 ml IV Total 875.495 ml 1496.748 ml # Voids 5 2 Laboratory Tests Test 09/07/18 04:00 09/07/18 04:08 09/07/18 11:50 White Blood Count 6.0 K/UL (4.8-10.8) 6.3 K/UL (4.8-10.8) Red Blood Count 4.36 M/UL (4.70-6.10) L 4.50 M/UL (4.70-6.10) L Hemoglobin 13.1 G/DL (14.2-18.0) L 13.5 G/DL (14.2-18.0) L Hematocrit 38.4 % (42.0-52.0) L 39.6 % (42.0-52.0) L Mean Corpuscular Volume 88 FL (80-99) 88 FL (80-99) Mean Corpuscular Hemoglobin 30.1 PG (27.0-31.0) 30.0 PG (27.0-31.0) Mean Corpuscular Hemoglobin Concent 34.1 G/DL (32.0-36.0) 34.1 G/DL (32.0-36.0) Red Cell Distribution Width 11.0 % (11.6-14.8) L 10.9 % (11.6-14.8) L Platelet Count 206 K/UL (150-450) 209 K/UL (150-450) Mean Platelet Volume 6.3 FL (6.5-10.1) L 6.8 FL (6.5-10.1) Neutrophils (%) (Auto) 44.6 % (45.0-75.0) L 55.4 % (45.0-75.0) Lymphocytes (%) (Auto) 35.8 % (20.0-45.0) 27.5 % (20.0-45.0) Monocytes (%) (Auto) 7.9 % (1.0-10.0) 6.9 % (1.0-10.0) Eosinophils (%) (Auto) 10.1 % (0.0-3.0) H 8.9 % (0.0-3.0) H Basophils (%) (Auto) 1.6 % (0.0-2.0) 1.3 % (0.0-2.0) Prothrombin Time 14.6 SEC (9.30-11.50) H Prothromb Time International Ratio 1.4 (0.9-1.1) H Sodium Level 140 MMOL/L (136-145) Potassium Level 3.6 MMOL/L (3.5-5.1) Chloride Level 103 MMOL/L (98-107) Carbon Dioxide Level 28 MMOL/L (21-32) Anion Gap 9 mmol/L (5-15) Blood Urea Nitrogen 9 mg/dL (7-18) Creatinine 1.0 MG/DL (0.55-1.30) Estimat Glomerular Filtration Rate > 60 mL/min (>60) Glucose Level 121 MG/DL (74-106) H Calcium Level 8.9 MG/DL (8.5-10.1) Total Bilirubin 0.6 MG/DL (0.2-1.0) Aspartate Amino Transf (AST/SGOT) 37 U/L (15-37) Alanine Aminotransferase (ALT/SGPT) 69 U/L (12-78) Alkaline Phosphatase 145 U/L (46-116) H Total Protein 7.1 G/DL (6.4-8.2) Albumin 3.4 G/DL (3.4-5.0) Globulin 3.7 g/dL Albumin/Globulin Ratio 0.9 (1.0-2.7) L Activated Partial Thromboplast Time 88 SEC (23-33) H Tariq Rm MD Sep 07, 2018 23:49
[2018-09-08] VITALS: BP 123/71
[2018-09-08 04:03] VITALS: BP 132/72
[2018-09-08] MEDS: Vancomycin 1gm/D5W 275ml IVPB SCH ×6 (05:03→21:51)
--- NOTE | 2018-09-08 07:15 | NUR ---
NURSE NOTES: Report received from outgoing nurse, rounds made. Patient resting in semi-fowlers position in bed, at bedside. Patient alert, oriented x4, calm. No SOB on RA, pain, NV. LH IV sites x2, patent, asymptomatic, Heparin GTT infusing, see IV spreadsheet. No active bleeding noted. Bilateral SCDs on. Right shoulder dressing remains CDI. Call light in reach, bed in lowest position, will continue to monitor.
--- NOTE | 2018-09-08 07:24 | NUR ---
HAND-OFF: Report given to JONATHAN Schmitt. at the bedside.
[2018-09-08 07:37] LABS: INR 1.8 (0.9-1.1)
[2018-09-08 08:00] VITALS: BP 120/75
--- NOTE | 2018-09-08 08:09 | NUR ---
NURSE NOTES: Received call from Pharmacy. PTT 88, Heparin GTT to remain at 18kg, next PTT tomorrow morning. See order.
[2018-09-08] MEDS: Heparin 25,000u/D5W 500ml 500 ML IV SCH (09:44)
[2018-09-08] MEDS: Docusate 100mg cap ORAL SCH ×3 (09:46→17:31)
[2018-09-08] MEDS: oxyCONTIN 20mg tab ORAL SCH ×2 (09:47→20:58)
[2018-09-08 12:00] VITALS: BP 117/69
[2018-09-08] MEDS: HYDROcodone/Acetamin 5/325 tab ORAL PRN (14:00)
--- NOTE | 2018-09-08 14:39 | Infectious Diseases Prog Note ---
Assessment/Plan Assessment/Plan ASSESSMENT AND PLAN: 1. right shoulder infection/wound drainage, blood culture + streptococcus mitis - 1/ bottles likely contaminant - currently on vancomycin and cefepime pending final culture - s/p I/D right shoulder with repair and wound closure - cultures of right shoulder are negative to date - treated in outpatient with po doxycycline for presumptive propionibacterium (cutibacterium), never had + culture in d/w Dr. Doll - d/w Dr. Doll and we both favor exterminator, 6-12 weeks, antibiotic treatment but to give oral for better compliance - will treat with keflex and bactrim to treat for staph aureus, strep pyogenes and propionibacterium/cutibacterium to cover common pathogens - no gram negatives have grown from culture - script written for both abx for 2 weeks and one refill, script written for labs in one week - patient to f/u with Dr. Doll, ortho, primary and if possible with me 2. The patient has history of trauma to the right shoulder I believe in an accident and he is status post acromioclavicular joint stabilization or AC joint stabilization. 3. Aortic valve replacement. He has been on warfarin. He is getting heparin now. 4. No history of diabetes or hypertension. 5. Pain management per primary and orthopedic surgery. 6. Allergies are negative. 7. Social history is negative. 8. Family history is noncontributory. 9. MAR was noted. 10. Case was discussed with RN. 11. Continue treatment per primary consultants. 12. Case communicated with Dr. Doll. Subjective Constitutional: Denies: fever HEENT: Denies: congestion Respiratory: Denies: shortness of breath Cardiovascular: Denies: chest pain Gastrointestinal/Abdominal: Denies: nausea, vomiting, diarrhea Genitourinary: Denies: dysuria, hematuria Psychiatric: Denies: depression Skin: Denies: rash Hematologic: Denies: bleeding Musculoskeletal: Reports: pain - right shoulder pain better per patient Allergies: Coded Allergies: No Known Allergies (Unverified , 08/01/18) Objective Vital Signs Last 24 Hour Vital Signs Date Time Temp Pulse Resp B/P (MAP) Pulse Ox O2 Delivery O2 Flow Rate FiO2 09/08/18 08:00 98.6 58 18 120/75 (90) 98 09/08/18 04:03 98.7 69 18 132/72 (92) 96 09/08/18 00:00 99.4 59 18 123/71 (88) 95 09/07/18 21:00 Room Air 09/07/18 20:00 99.7 63 20 125/76 (92) 96 09/07/18 16:00 98.7 64 20 126/82 (97) 98 Height (Feet): 5 Height (Inches): 6.00 Weight (Pounds): 153 General Appearance: no acute distress HEENT: normocephalic, atraumatic, anicteric Respiratory/Chest: lungs clear, normal breath sounds, no respiratory distress, no accessory muscle use Cardiovascular: normal rate, regular rhythm, no gallop/murmur, no JVD Abdomen: normal bowel sounds, soft, non tender, no organomegaly, non distended Genitourinary: other - no zendejas Extremities: no cyanosis Skin: no rash 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, alert, oriented x 3, responsive Lymphatic: no neck adenopathy, other - right shoulder covered Musculoskeletal: other Objective Imaging - none Microbiology Date/Time Source Procedure Growth Status 09/06/18 21:00 Blood Blood Culture - Preliminary NO GROWTH AFTER 24 HOURS Resulted 09/04/18 20:47 Shoulder Right Anaerobic Culture - Final NO ANAEROBES ISOLATED Complete Microbiology Date/Time Source Procedure Growth Status 09/06/18 21:00 Blood Blood Culture - Preliminary NO GROWTH AFTER 24 HOURS Resulted 09/06/18 20:45 Blood Blood Culture - Preliminary NO GROWTH AFTER 24 HOURS Resulted Labs Test 09/05/18 20:20 09/06/18 04:00 09/06/18 21:00 09/07/18 04:00 Activated Partial Thromboplast Time 62 SEC (23-33) 92 SEC (23-33) Vancomycin Level Trough 10.3 ug/mL (5.0-12.0) 16.1 ug/mL (5.0-12.0) Prothrombin Time 12.5 SEC (9.30-11.50) 14.6 SEC (9.30-11.50) Prothromb Time International Ratio 1.2 (0.9-1.1) 1.4 (0.9-1.1) White Blood Count 6.0 K/UL (4.8-10.8) Red Blood Count 4.36 M/UL (4.70-6.10) Hemoglobin 13.1 G/DL (14.2-18.0) Hematocrit 38.4 % (42.0-52.0) Mean Corpuscular Volume 88 FL (80-99) Mean Corpuscular Hemoglobin 30.1 PG (27.0-31.0) Mean Corpuscular Hemoglobin Concent 34.1 G/DL (32.0-36.0) Red Cell Distribution Width 11.0 % (11.6-14.8) Platelet Count 206 K/UL (150-450) Mean Platelet Volume 6.3 FL (6.5-10.1) Neutrophils (%) (Auto) 44.6 % (45.0-75.0) Lymphocytes (%) (Auto) 35.8 % (20.0-45.0) Monocytes (%) (Auto) 7.9 % (1.0-10.0) Eosinophils (%) (Auto) 10.1 % (0.0-3.0) Basophils (%) (Auto) 1.6 % (0.0-2.0) Sodium Level 140 MMOL/L (136-145) Potassium Level 3.6 MMOL/L (3.5-5.1) Chloride Level 103 MMOL/L (98-107) Carbon Dioxide Level 28 MMOL/L (21-32) Anion Gap 9 mmol/L (5-15) Blood Urea Nitrogen 9 mg/dL (7-18) Creatinine 1.0 MG/DL (0.55-1.30) Estimat Glomerular Filtration Rate > 60 mL/min (>60) Glucose Level 121 MG/DL (74-106) Calcium Level 8.9 MG/DL (8.5-10.1) Total Bilirubin 0.6 MG/DL (0.2-1.0) Aspartate Amino Transf (AST/SGOT) 37 U/L (15-37) Alanine Aminotransferase (ALT/SGPT) 69 U/L (12-78) Alkaline Phosphatase 145 U/L (46-116) Total Protein 7.1 G/DL (6.4-8.2) Albumin 3.4 G/DL (3.4-5.0) Globulin 3.7 g/dL Albumin/Globulin Ratio 0.9 (1.0-2.7) Test 09/07/18 04:08 09/07/18 11:50 09/08/18 05:26 Activated Partial Thromboplast Time 88 SEC (23-33) 88 SEC (23-33) White Blood Count 6.3 K/UL (4.8-10.8) Red Blood Count 4.50 M/UL (4.70-6.10) Hemoglobin 13.5 G/DL (14.2-18.0) Hematocrit 39.6 % (42.0-52.0) Mean Corpuscular Volume 88 FL (80-99) Mean Corpuscular Hemoglobin 30.0 PG (27.0-31.0) Mean Corpuscular Hemoglobin Concent 34.1 G/DL (32.0-36.0) Red Cell Distribution Width 10.9 % (11.6-14.8) Platelet Count 209 K/UL (150-450) Mean Platelet Volume 6.8 FL (6.5-10.1) Neutrophils (%) (Auto) 55.4 % (45.0-75.0) Lymphocytes (%) (Auto) 27.5 % (20.0-45.0) Monocytes (%) (Auto) 6.9 % (1.0-10.0) Eosinophils (%) (Auto) 8.9 % (0.0-3.0) Basophils (%) (Auto) 1.3 % (0.0-2.0) Prothrombin Time 18.7 SEC (9.30-11.50) Prothromb Time International Ratio 1.8 (0.9-1.1) Laboratory Tests Test 09/08/18 05:26 Prothrombin Time 18.7 SEC (9.30-11.50) H Prothromb Time International Ratio 1.8 (0.9-1.1) H Activated Partial Thromboplast Time 88 SEC (23-33) H Current Medications Medications (Trade) Dose Ordered Sig/Kelli Route PRN Reason Start Time Stop Time Status Last Admin Dose Admin Acetaminophen/ Hydrocodone Bitart (Stanley 5/325) 1 tab Q4H PRN ORAL Moderate pain(4-6) 09/03/18 20:00 09/10/18 19:59 09/08/18 14:00 Cefepime HCl 2 gm/ Dextrose 100 ml @ 200 mls/hr Q12HR IVPB 09/04/18 15:30 09/11/18 15:29 09/08/18 09:46 Docusate Sodium (Colace) 100 mg THREE TIMES A DAY ORAL 09/04/18 09:00 10/04/18 08:59 09/08/18 13:43 Heparin Sodium/ Dextrose 500 ml @ 25.045 mls/ hr ADJUST PER PROTOCOL IV 09/05/18 21:15 10/05/18 14:14 09/08/18 09:44 Hydromorphone HCl (Dilaudid) 0.5 mg Q4H PRN SUBQ Severe Pain (Pain Scale 7-10) 09/03/18 20:09 09/10/18 20:08 Ondansetron HCl (Zofran) 4 mg Q6H PRN IVP Nausea & Vomiting 09/03/18 20:00 10/03/18 19:59 Oxycodone HCl (OxyCONTIN) 20 mg EVERY 12 HOURS ORAL 09/03/18 21:00 09/10/18 20:59 09/08/18 09:47 Temazepam (Restoril) 7.5 mg HSPRN PRN ORAL Insomnia 09/03/18 20:00 09/10/18 19:59 Vancomycin HCl (Vanco rx to dose) 1 ea DAILY PRN MISC Per rx protocol 09/03/18 20:00 10/03/18 19:59 Vancomycin HCl 1 gm/Dextrose 275 ml @ 183.708 mls/hr Q8HR IVPB 09/06/18 06:00 09/11/18 05:59 09/08/18 13:43 Warfarin Sodium (Coumadin) 10 mg COUMADIN ORAL 09/07/18 17:00 09/12/18 16:59 09/07/18 17:15 Iris Yo MD Sep 08, 2018 14:39
[2018-09-08 16:00] VITALS: BP 140/81
[2018-09-08] MEDS ORDERED: NS 500ML ONE (16:43)
[2018-09-08] MEDS: Warfarin Sodium 10mg ORAL SCH (17:31)
--- NOTE | 2018-09-08 18:51 | General Progress Note ---
Assessment/Plan Problem List: (1) right shoulder infection (2) History of shoulder surgery ICD Codes: Z98.890 - Other specified postprocedural states SNOMED: 228175225 (3) S/P AVR (aortic valve replacement) ICD Codes: Z95.2 - Presence of prosthetic heart valve SNOMED: 82738404, 02285200, 3766445545125 (4) Bacteremia ICD Codes: R78.81 - Bacteremia SNOMED: 8633577 Assessment/Plan Abxs per ID anticoagulation Cardiology and ID F/U Follow pro time Subjective Allergies: Coded Allergies: No Known Allergies (Unverified , 08/01/18) Subjective No new complaints Objective Last 24 Hour Vital Signs Date Time Temp Pulse Resp B/P (MAP) Pulse Ox O2 Delivery O2 Flow Rate FiO2 09/08/18 16:00 98.0 51 20 140/81 (100) 97 09/08/18 12:00 98.7 55 21 117/69 (85) 97 09/08/18 09:00 Room Air 09/08/18 08:00 98.6 58 18 120/75 (90) 98 09/08/18 04:03 98.7 69 18 132/72 (92) 96 09/08/18 00:00 99.4 59 18 123/71 (88) 95 09/07/18 21:00 Room Air 09/07/18 20:00 99.7 63 20 125/76 (92) 96 Intake and Output 09/07/18 09/08/18 19:00 07:00 Intake Total 1375.450 ml 575.585 ml Balance 1375.450 ml 575.585 ml Intake Oral 900 ml 250 ml IV Total 475.450 ml 325.585 ml # Voids 4 2 Laboratory Tests 09/08/18 05:26: Prothrombin Time 18.7H, Prothromb Time International Ratio 1.8H, Activated Partial Thromboplast Time 88H Height (Feet): 5 Height (Inches): 6.00 Weight (Pounds): 153 Cardiovascular: normal rate Respiratory/Chest: lungs clear Edema: no edema noted Generalized Phill Roberts MD Sep 08, 2018 18:51
--- NOTE | 2018-09-08 19:20 | NUR ---
HAND-OFF: Report given to Deb CASTILLO.
--- NOTE | 2018-09-08 19:39 | NUR ---
NURSE NOTES: PATIENT IN BED, AOX4. AT BEDSIDE. 2 IV ACCESS ON LEFT HAND IN PLACE, PATENT. PATIENT ON HEPARIN DRIP. NO COMPLAINTS OF PAIN AT THIS TIME. NO S/S RESPIRATORY DISTRESS NOTED. DRESSING ON RIGHT SHOULDER DRY AND INTACT. BED IN LOWEST POSITION, CALL LIGHT WITHIN REACH. WILL CONTINUE TO MONITOR.
[2018-09-08 20:05] VITALS: BP 118/71
[2018-09-09] VITALS: BP 110/67
[2018-09-09 04:24] VITALS: BP 108/65
--- NOTE | 2018-09-09 04:26 | NUR ---
NURSE NOTES: Patient in no distress, calm, comfortable, v/s stable.
[2018-09-09] MEDS: Heparin 25,000u/D5W 500ml 500 ML IV SCH (06:00)
[2018-09-09] MEDS: Vancomycin 1gm/D5W 275ml IVPB SCH ×2 (06:10)
[2018-09-09 06:35] LABS: ANION GAP 7 mmol/L (5-15); BLOOD UREA NITROGEN 10 mg/dL (7-18); CALCIUM 8.7 MG/DL (8.5-10.1); CARBON DIOXIDE 28 MMOL/L (21-32); CHLORIDE 105 MMOL/L (98-107); CREATININE 0.9 MG/DL (0.55-1.30); POTASSIUM 3.7 MMOL/L (3.5-5.1); SODIUM 140 MMOL/L (136-145)
[2018-09-09 06:50] LABS: INR 2.5 (0.9-1.1)
[2018-09-09 06:51] LABS: EOSINOPHILS % (AUTO) 12.2 % (0.0-3.0); HEMATOCRIT 37.5 % (42.0-52.0); HEMOGLOBIN 12.7 G/DL (14.2-18.0); MEAN CORPUSCULAR VOLUME 89 FL (80-99); MONOCYTES % (AUTO) 8.8 % (1.0-10.0); PLATELET COUNT 200 K/UL (150-450); RED BLOOD COUNT 4.21 M/UL (4.70-6.10); RED CELL DISTRIBUTION WIDTH 11.3 % (11.6-14.8); WHITE BLOOD COUNT 5.3 K/UL (4.8-10.8)
--- NOTE | 2018-09-09 07:10 | NUR ---
NURSE NOTES: 0707 - RECEIVED CALL FROM PHARMACY AND WAS TOLD TO TURN OFF HEPARIN DRIP FOR 30 MINUTES DUE TO PTT 114. WILL TURN ON AGAIN AT 0745 AND CHANGE RATE TO 15 U/KG/HR AND FOR TIMED PTT LAB 6 HOURS LATER AT 1307. HEPARIN DRIP TURNED OFF AND WILL ENDORSE TO AM NURSE.
--- NOTE | 2018-09-09 07:30 | NUR ---
HAND-OFF: Report given to JUMANA WHYTE RN.
[2018-09-09] MEDS ORDERED: Heparin 25,000u/D5W 500ml 500 ML IV SCH (07:45)
[2018-09-09 08:00] VITALS: BP 116/67
--- NOTE | 2018-09-09 08:11 | NUR ---
NURSE NOTES: Received report from JONATHAN Phillips. Pt in bed, awake, talkative, eating breakfast, A/Ox 4, restarted Heparin at 0751 per protocol, at bedside, no distress noted, bed in lowest position, call light within reach.
[2018-09-09] MEDS: Docusate 100mg cap ORAL SCH (08:30)
[2018-09-09] MEDS: oxyCONTIN 20mg tab ORAL SCH (08:31)
--- NOTE | 2018-09-09 11:22 | NUR ---
NURSE NOTES: Dr. Ybarra called and left a message about the discharge and medication will follow up for call back.
--- NOTE | 2018-09-09 11:25 | NUR ---
NURSE NOTES: Dr. Doll ordered to stop Heparin gtt as INR is 2.5. Confirmed with Pharmacy to stop infusion and per Marialuisa in Pharmacy waste remaining bag of Heparin in Pharmacy waste bin on [address].
[2018-09-09 12:00] VITALS: BP 138/73
[2018-09-09] MEDS ORDERED: BACTRIM-DS1 EA ORAL (12:19)
[2018-09-09] MEDS ORDERED: CEPHALEXIN500 MG ORAL (12:20)
--- NOTE | 2018-09-09 13:32 | NUR ---
NURSE NOTES: Pt discharged home with all belongings. Accompanied by Significant Other, Jayleen. Pt has hand-written RX for Abx and lab tests. Reviewed all DC paperwork and instruction with pt, Pt verbalizes understanding to see Dr. Rm in 1-2 weeks after obtaining INR level. IV removed intact, ID band removed, pt stable for discharge home.
--- NOTE | 2018-09-09 14:14 | General Progress Note ---
Assessment/Plan Problem List: (1) right shoulder infection (2) History of shoulder surgery ICD Codes: Z98.890 - Other specified postprocedural states SNOMED: 981655218 (3) S/P AVR (aortic valve replacement) ICD Codes: Z95.2 - Presence of prosthetic heart valve SNOMED: 91249430, 06240335, 5082916755412 (4) Bacteremia ICD Codes: R78.81 - Bacteremia SNOMED: 4656506 Assessment/Plan cont as is DC per Dr Doll Subjective Allergies: Coded Allergies: No Known Allergies (Unverified , 08/01/18) Subjective all noted Objective Last 24 Hour Vital Signs Date Time Temp Pulse Resp B/P (MAP) Pulse Ox O2 Delivery O2 Flow Rate FiO2 09/09/18 12:00 97.8 60 16 138/73 (94) 97 09/09/18 09:01 97.7 09/09/18 09:00 Room Air 09/09/18 08:00 97.7 53 16 116/67 (83) 97 09/09/18 04:24 97.9 54 18 108/65 (79) 94 09/09/18 00:00 97.9 55 18 110/67 (81) 100 09/08/18 20:08 Room Air 09/08/18 20:05 97.9 63 19 118/71 (87) 97 09/08/18 16:00 98.0 51 20 140/81 (100) 97 Intake and Output 09/08/18 09/09/18 18:59 06:59 Intake Total 1690.450 ml 767.495 ml Output Total 600 ml Balance 1690.450 ml 167.495 ml Intake Oral 1440 ml 120 ml IV Total 250.450 ml 647.495 ml Output Urine Total 600 ml # Voids 2 # Bowel Movements 1 Laboratory Tests 09/09/18 05:40: White Blood Count 5.3, Red Blood Count 4.21L, Hemoglobin 12.7L, Hematocrit 37.5L , Mean Corpuscular Volume 89, Mean Corpuscular Hemoglobin 30.3, Mean Corpuscular Hemoglobin Concent 34.0, Red Cell Distribution Width 11.3L, Platelet Count 200, Mean Platelet Volume 6.6, Neutrophils (%) (Auto) 40.0L, Lymphocytes (%) (Auto) 37.0, Monocytes (%) (Auto) 8.8, Eosinophils (%) (Auto) 12.2H, Basophils (%) (Auto) 2.0, Prothrombin Time 25.0H, Prothromb Time International Ratio 2.5H, Activated Partial Thromboplast Time 114H, Sodium Level 140, Potassium Level 3.7, Chloride Level 105, Carbon Dioxide Level 28, Anion Gap 7, Blood Urea Nitrogen 10, Creatinine 0.9, Estimat Glomerular Filtration Rate > 60, Glucose Level 115H, Calcium Level 8.7 Height (Feet): 5 Height (Inches): 6.00 Weight (Pounds): 153 Cardiovascular: normal rate Respiratory/Chest: lungs clear Phill Roberts MD Sep 09, 2018 14:14
[2018-09-09] MEDS ORDERED: Warfarin Sodium 7.5mg ORAL SCH (17:00)
--- NOTE | 2018-09-11 14:13 | Discharge Summary ---
Discharge Summary Hospital Course Date of Admission Sep 03, 2018 at 13:57 Date of Discharge Sep 09, 2018 at 14:45 Admitting Diagnosis right shoulder infection Reason for Hospitalization: elective surgery HPI Leonel Dutta is a 43 year old male with past medical history of aortic valve replacement, on Coumadin ( not compliant with treatment) , was admitted on Sep 03, 2018 at 13:57 for Right Shoulder Infection. Patient underwent AC joint stabilization procedure. Approximately a week after the procedure, he developed some mild serous drainage. Patient was started on oral antibiotics. He continued to have persistent drainage and therefore it was felt that he probably had intermittent infection for possible P. acne infection, although he was started on doxycycline . Although wound appeared to be healing well, he continued to have the serous drainage. Therefore it was felt, that exploration and I and D of the right shoulder would be reasonable. Risks, limitations, expectations, and complications related to procedure were discussed in detail given his medical comorbidities. Consultations dr Khan -IM dr Yo -ID specialist dr. Rm -medical care evaluation specialist dr. Roberts - reed cleaner Procedures s/p 09/03/[address] Doll 1. Right shoulder I and D, deep. 2. Repair of deltoid fascia dehiscence. 3. Complex wound closure. Hospital Course status post surgery patient started on empiric antibiotic ID specialist followed. initial blood culture 1 out of 4 revealed Streptococci Mitis gram stain and right shoulder culture were negative surveillance blood culture on 09/06 were negative patient remained afebrile , no leukocytosis echocardiogram revealed mildly depressed left ventricular systolic function and wall motion with ejection fraction estimated to be 50-55% with mild left ventricular hypertrophy no evidence of pericardial effusion. no discrete vegetation was seen pain management was addressed, and pain was controlled wound care provided as per surgeon recommendation patient was on heparin drip and Coumadin to bridge to therapeutic INR patient was working with physical therapist patient was mobilized out of bed , incentive spirometry provided while in the bed patient tolerated diet., ambulated, voided freely bowel regimen instituted blood pressure was closely monitored and remained stable on 09/09 INR reached therapeutic level, Heparin was discontinued, continue Coumadin as outpatient patient was counseled on importance of adherence to medication regimen patient was discharged on oral antibiotic: Keflex and Bactrim, surveillance blood culture negative patient most likely has P. acnes infection oral antibiotics were plannned for 6 to 12 weeks discharge instructions provided patient to follow up with surgeon as advised and primary care provider FINAL DIAGNOSES Right shoulder infection s/p Right shoulder incision and drainage right shoulder Status post recent right shoulder AC joint reconstruction History of aortic valve replacement Bacteremia Discharge Medications Continued Medications: Cephalexin* (Keflex*) 500 Mg Capsule 500 MG ORAL QID, #14 CAP 0 Refills (This prescription has been renewed) Trimethoprim/Sulfamethoxazole (Bactrim Ds Tablet) 1 Each Tablet 2 TAB ORAL TWICE A DAY, TAB (This prescription has been renewed) Warfarin Sod (Coumadin*) 7.5 Mg Tablet 7.5 MG ORAL DAILY, TAB (This prescription has been renewed) Discharge Condition Upon Discharge: stable Discharge Disposition Patient was discharged to Home (01) Discharge Instructions Discharge Instructions Special Instructions I have been assigned to complete a D/C Summary on this account. I was not involved in the patient management Zeynep Pathak NP Sep 11, 2018 14:13
== END 2018-09-09 14:45 | disposition home or self-care (01) | DRG 857 ==
LOC: 3E 13:57
PROC: 0R9J0ZZ Drainage of Right Shoulder Joint, Open Approach (ICD-10-PCS; principal; 2018-09-03 21:00)
PROC: 0JXD0ZZ Transfer Right Upper Arm Subcutaneous Tissue and Fascia, Open Approach (ICD-10-PCS; principal; 2018-09-03 21:00)
DX: T81.42XA Infection following a procedure, deep incisional surgical site, initial encounter (principal); T81.32XA Disruption of internal operation (surgical) wound, not elsewhere classified, initial encounter; Y83.8 Other surgical procedures as the cause of abnormal reaction of the patient, or of later complication, without mention of misadventure at the time of the procedure; Z79.01 Long term (current) use of anticoagulants; Z95.2 Presence of prosthetic heart valve
CPT/HCPCS: 36415; 80048; 80053; 80202; 82248; 85025; 85610; 85651; 85730; 86140; 86703; 86803; 87040; 87070; 87075; 87181; 87205; 93005; 93306; 94003; 94150; J2250